=== PATIENT | male | born 1960 | race Caucasian/White ===

== ENCOUNTER 2017-01-25 10:58 | Inpatient (IN) ==
[2017-01-25 11:26] LABS: Bilirubin,Urine Negative (Negative); Blood,Urine Negative (Negative); Clarity,Urine Clear (Clear); Color,Urine Yellow (Yellow); Glucose,Urine (UA) Normal (Normal); Ketones,Urine Negative (Negative); Leukocyte Esterase,Urine Negative (Negative); Nitrite,Urine Negative (Negative); PH,Urine 6.5 pH Units (5.0-8.0); Protein,Urine Negative (Neg-Trace); Specific Gravity,Urine 1.017 (1.010-1.025); Urobilinogen,Urine Normal (Normal)
[2017-01-25 11:30] LABS: Basophils % 0.5 %; Eosinophils # 0.1 K/mcL (0.0-0.6); Eosinophils % 1.5 %; Hematocrit 44.4 % (37.5-50.1); Hemoglobin 14.7 g/dL (12.9-16.9); Immature Granulocytes % 0.2 % (0-4); Lymphocytes # 1.8 K/mcL (0.6-4.6); Lymphocytes % 29.9 %; Mean Corpuscular HGB Conc 33.1 g/dL (31.6-35.5); Mean Corpuscular Hemoglobin 30.2 pg (28.0-33.3); Mean Corpuscular Volume 91.4 fL (83.0-100.0); Monocytes # 0.4 K/mcL (0.0-1.3); Monocytes % 6.2 %; Neutrophils # 3.7 K/mcL (1.6-8.9); Platelet Count 202 K/mcL (140-400); Red Blood Count 4.86 M/mcL (4.19-5.50); Red Cell Distribution Width 14.8 % (11.5-14.5); Segmented Neutrophils % 61.7 %
[2017-01-25 11:33] LABS: Amphetamine Screen,Urine Negative ng/mL (Cutoff=1000); Barbiturate Screen,Urine Negative ng/mL (Cutoff=200); Benzodiazepines Screen,Urine Negative ng/mL (Cutoff=200); Cannabinoid Screen,Urine Positive ng/mL (Cutoff = 50); Cocaine Screen,Urine Negative ng/mL (Cutoff= 300); Opiate Screen,Urine Negative ng/mL (Cutoff=300); Phencyclidine Screen,Urine Negative ng/mL (Cutoff=25)
[2017-01-25 11:37] LABS: Acetaminophen < 1.0 mcg/mL (10-30); BUN/Creatinine Ratio 9 (6-26); Blood Urea Nitrogen 7 mg/dL (8-26); Calcium 9.1 mg/dL (8.6-10.8); Carbon Dioxide 22 mEq/L (19-29); Chloride 103 mEq/L (98-109); Ethanol < 10 mg/dL (0-10); Glucose 138 mg/dL (70-99); Osmolality,Calculated 282 (280-300); Potassium 3.6 mEq/L (3.5-4.5); Salicylate < 5.0 mg/dL (15-30); Sodium 136 mEq/L (136-145); eGFR For African Americans > 60 (> 60); eGFR For Non-African Americans > 60 (> 60)
--- NOTE | 2017-01-25 11:46 | Emergency Department Note ---
Disposition Clinical Impression: Schizophrenia, paranoid, chronic, Suicidal ideation Disposition: Admitted As Inpatient Condition: Fair Time of Disposition: 14:20 Psych HPI - General Chief Complaint: ED Psychiatric Symptoms Stated Complaint: SI Time Seen by Provider: 01/25/17 11:10 Source: patient Mode of arrival: ambulatory Limitations: no limitations Nursing Notes Reviewed: Yes Vital Signs Reviewed: Yes - History of Present Illness HPI Narrative: 56-year-old male with history of schizophrenia, bipolar, presents with suicidal ideation, denies clear plan, denies homicidal ideation or hallucinations. Patient states that he has no chest pain abdominal pain shortness of breath hemoptysis hematochezia or dysuria. He states that he has been noncompliant on psych medication for about a week he ran out of his Seroquel. He states he has a history of visits to inpatient psychiatry, he currently thinks the suicidal because he is not taking any of his antipsychotic medication. Pt complaint: suicidal ideation Onset (ago): hour(s) History of similar episodes: Yes Improves with: medication Worsens with: none Context: not taking psychiatric medications Alleged intoxication: No Associated Psychiatric Symptoms: suicidal ideation Associated symptoms: Denies: confusion, headache, shortness of breath - Related Data Home Medications Medication Instructions Recorded Confirmed Cyclobenzaprine [Flexeril] 10 mg PO BID PRN 01/25/17 01/25/17 Haloperidol [Haldol] 10 mg PO BID 01/25/17 01/25/17 Mirtazapine [Remeron] 15 mg PO HS 01/25/17 01/25/17 Quetiapine Fumarate [Seroquel] 200 mg PO HS 01/25/17 01/25/17 Previous Rx's Medication Instructions Recorded Benztropine [Cogentin] 1 mg PO BID 14 Days tablet 09/29/16 Allergies Allergy/AdvReac Type Severity Reaction Status Date / Time No Known Allergies Allergy Verified 01/25/17 10:59 All systems ED: reviewed and negative except as stated. Review of Systems: As Per HPI Constitutional: Denies: fever, chills Eyes: Denies: eye pain ENT ED: Denies: ear pain Cardiovascular: Denies: chest pain Respiratory: Denies: cough Gastrointestinal: Denies: abdominal pain, nausea Genitourinary: Denies: urgency Musculoskeletal: Denies: back pain, neck pain Integumentary: Denies: rash Neurological: Denies: headache Psychiatric: Reports: as per HPI, anxiety, depression, suicidal thoughts. Denies: homicidal thoughts, auditory hallucinations Past Medical History - Past Medical History Attestation: Yes The following information was validated with the patient. Source: patient Medical history: Reports: arthritis, COPD, hyperlipidemia Surgical history: Reports: other (Pilonidal cyst removal) Psychiatric history: Reports: bipolar, depression, schizophrenia - Social History Smoking Status: Current every day smoker Smokeless Tobacco Status: No Alcohol use: Reports: occasionally Drug use: Reports: none Physical Exam Constitutional: disheveled middle aged male, vital signs reviewed and wnl Eyes: PERRLA, sclera anicteric ENT & Mouth: MM dry Neck: normal inspection, neck is supple Resp: CTA bilaterally, no resp distress CV: RRR, no m/g/r GI: normal inspection, soft, no guarding or rigidity Psych: +SI no HI Neuro: A&O3, CNII-XII grossly intact, AARON Skin: on limited exam, skin intact with no rashes or lesions - General Limitations: no limitations General appearance: alert, in no apparent distress Course Course Narrative: 56-year-old male with suicidal ideation, basic lab work's medical screening exam performed, - Reevaluation(s) Reevaluation #1: Patient is medically cleared, one A did evaluate the patient, there did not appropriate for admission to inpatient psychiatry, patient will be Vital Signs Temperature 98.2 F 01/25/17 11:00 Pulse Rate 116 01/25/17 11:00 Respiratory Rate 18 01/25/17 11:00 Blood Pressure 133/72 01/25/17 11:00 O2 Sat by Pulse Oximetry 99 01/25/17 11:00 Temperature 98.2 F 01/25/17 11:00 Pulse Rate 81 01/25/17 12:27 Respiratory Rate 16 01/25/17 12:27 Blood Pressure 141/88 01/25/17 12:27 O2 Sat by Pulse Oximetry 100 01/25/17 12:27 Oxygen Delivery Oxygen Delivery Room Air Psych - Lab Data Result diagrams: 01/25/17 11:17 01/25/17 11:17 Lab Results 01/25/17 01/25/17 01/25/17 Range/Units 11:17 11:17 11:18 WBC 6.0 (4.3-11.1) K/mcL RBC 4.86 (4.19-5.50) M/mcL Hgb 14.7 (12.9-16.9) g/dL Hct 44.4 (37.5-50.1) % MCV 91.4 (83.0-100.0) fL MCH 30.2 (28.0-33.3) pg MCHC 33.1 (31.6-35.5) g/dL RDW 14.8 H (11.5-14.5) % Plt Count 202 (140-400) K/mcL MPV 9.0 L (9.4-12.4) fL Immature Gran % 0.2 (0-4) % Seg Neutrophils % 61.7 % Lymphocytes % 29.9 % Monocytes % 6.2 % Eosinophils % 1.5 % Basophils % 0.5 % Neutrophils # 3.7 (1.6-8.9) K/mcL Lymphocytes # 1.8 (0.6-4.6) K/mcL Monocytes # 0.4 (0.0-1.3) K/mcL Eosinophils # 0.1 (0.0-0.6) K/mcL Basophils # 0.0 (0.0-0.2) K/mcL Sodium 136 (136-145) mEq/L Potassium 3.6 (3.5-4.5) mEq/L Chloride 103 (98-109) mEq/L Carbon Dioxide 22 (19-29) mEq/L BUN 7 L (8-26) mg/dL Creatinine 0.82 (0.72-1.25) mg/dL Est GFR ( Amer) > 60 (> 60) Est GFR (Non-Af Amer) > 60 (> 60) BUN/Creatinine Ratio 9 (6-26) Glucose 138 H (70-99) mg/dL Calculated Osmolality 282 (280-300) Calcium 9.1 (8.6-10.8) mg/dL Urine Color Yellow (Yellow) Urine Clarity Clear (Clear) Urine pH 6.5 (5.0-8.0) pH Units Ur Specific [place] 1.017 (1.010-1.025) Urine Protein Negative (Neg-Trace) mg/dL Urine Glucose (UA) Normal (Normal) mg/dL Urine Ketones Negative (Negative) mg/dL Urine Blood Negative (Negative) Urine Nitrite Negative (Negative) Urine Bilirubin Negative (Negative) Urine Urobilinogen Normal (Normal) mg/dL Ur Leukocyte Esterase Negative (Negative) Salicylates < 5.0 L (15-30) mg/dL Urine Opiates Screen (Petfqd=625) ng/mL Acetaminophen < 1.0 L (10-30) mcg/mL Ur Barbiturates Screen (Vihefy=689) ng/mL Ur Phencyclidine Scrn (Cutoff=25) ng/mL Ur Amphetamines Screen (Lhzcgw=4365) ng/mL U Benzodiazepines Scrn (Hwmyrb=941) ng/mL Urine Cocaine Screen (Cutoff= 300) ng/mL U Marijuana (THC) Screen (Cutoff = 50) ng/mL Ethyl Alcohol < 10 (0-10) mg/dL // Range/Units 11:18 WBC (4.3-11.1) K/mcL RBC (4.19-5.50) M/mcL Hgb (12.9-16.9) g/dL Hct (37.5-50.1) % MCV (83.0-100.0) fL MCH (28.0-33.3) pg MCHC (31.6-35.5) g/dL RDW (11.5-14.5) % Plt Count (140-400) K/mcL MPV (9.4-12.4) fL Immature Gran % (0-4) % Seg Neutrophils % % Lymphocytes % % Monocytes % % Eosinophils % % Basophils % % Neutrophils # (1.6-8.9) K/mcL Lymphocytes # (0.6-4.6) K/mcL Monocytes # (0.0-1.3) K/mcL Eosinophils # (0.0-0.6) K/mcL Basophils # (0.0-0.2) K/mcL Sodium (136-145) mEq/L Potassium (3.5-4.5) mEq/L Chloride (98-109) mEq/L Carbon Dioxide (19-29) mEq/L BUN (8-26) mg/dL Creatinine (0.72-1.25) mg/dL Est GFR ( Amer) (> 60) Est GFR (Non-Af Amer) (> 60) BUN/Creatinine Ratio (6-26) Glucose (70-99) mg/dL Calculated Osmolality (280-300) Calcium (8.6-10.8) mg/dL Urine Color (Yellow) Urine Clarity (Clear) Urine pH (5.0-8.0) pH Units Ur Specific [place] (1.010-1.025) Urine Protein (Neg-Trace) mg/dL Urine Glucose (UA) (Normal) mg/dL Urine Ketones (Negative) mg/dL Urine Blood (Negative) Urine Nitrite (Negative) Urine Bilirubin (Negative) Urine Urobilinogen (Normal) mg/dL Ur Leukocyte Esterase (Negative) Salicylates (15-30) mg/dL Urine Opiates Screen Negative (Kkgwdd=894) ng/mL Acetaminophen (10-30) mcg/mL Ur Barbiturates Screen Negative (Zhhyus=850) ng/mL Ur Phencyclidine Scrn Negative (Cutoff=25) ng/mL Ur Amphetamines Screen Negative (Fpsfic=3790) ng/mL U Benzodiazepines Scrn Negative (Qsoztv=509) ng/mL Urine Cocaine Screen Negative (Cutoff= 300) ng/mL U Marijuana (THC) Screen Positive H (Cutoff = 50) ng/mL Ethyl Alcohol (0-10) mg/dL Psychiatric Medical Clearance - Medical Clearance Checklist Does the patient have a NEW psychiatric condition?: No Any abnormalities indicating possible medical illness?: No Any history of medical issues?: No Medical History: Schizophrenia, paranoid, chronic (Acute) Suicidal ideation (Acute) Depression (Acute) Anxiety disorder (Acute) Bipolar disorder (Inactive) Blister of foot without infection (Inactive) Cellulitis (Inactive) Depression (Inactive) Dermatitis (Inactive) Encounter for medication refill (Inactive) Foot callus (Inactive) Pain of male genitalia (Inactive) Poor hygiene (Inactive) Schizophrenic disorder (Inactive) No Social History Section defined Any abnormal vital signs prior to transfer?: No Current Vitals: Last Vital Signs Temp 98.2 F 01/25/17 11:00 Pulse 81 01/25/17 12:27 Resp 16 01/25/17 12:27 BP 141/88 01/25/17 12:27 Pulse Ox 100 01/25/17 12:27 Is the patient intoxicated or cognitively impaired?: No Psychiatric Lab Panel: Drug Levels and Toxicity 01/25/17 01/25/17 11:17 11:18 Urine Opiates Screen Negative Acetaminophen < 1.0 L Ur Barbiturates Screen Negative Ur Phencyclidine Scrn Negative Ur Amphetamines Screen Negative U Benzodiazepines Scrn Negative Urine Cocaine Screen Negative U Marijuana (THC) Screen Positive H Ethyl Alcohol < 10 Any abnormalities on the physical exam?: No Any abnormal labs?: No Abnormal Labs: Abnormal lab results RDW 14.8 % (11.5-14.5) H 01/25/17 11:17 MPV 9.0 fL (9.4-12.4) L 01/25/17 11:17 BUN 7 mg/dL (8-26) L 01/25/17 11:17 Glucose 138 mg/dL (70-99) H 01/25/17 11:17 Salicylates < 5.0 mg/dL (15-30) L 01/25/17 11:17 Acetaminophen < 1.0 mcg/mL (10-30) L 01/25/17 11:17 U Marijuana (THC) Screen Positive ng/mL (Cutoff = 50) H 01/25/17 11:18 Does the patient require durable medical equiptment?: No Is the patient ambulatory?: Yes Is the patient a fall risk?: No Has the patient been medically cleared?: Yes Any acute medical condition require Tx prior to transfer?: No Statement of Medical Clearance: I have evaluated the patient, reviewed diagnostic information, and certify that the patient's medical condition is sufficiently stable that transfer to the psychiatric unit does not pose a significant risk of deterioration.
--- NOTE | 2017-01-25 12:00 | Emergency Department Note ---
START Narrative - START START: I examined this patient and my medical decision-making was reviewed with the Resident Physician. I agree with the documented findings, disposition and treatment plan as described except to the extent set forth below. 56 year old male with history of schizophrenia presents to the ED with SI and states that he has ran out of his medication which are making his symptoms worse. Lele states that he lives in an apartment but I have high suspicions that he may be homeless. Lele will recieve a medical clearance from us and then we will consult 1A
[2017-01-25] MEDS ORDERED: MOM Conc 10 ML UD.LIQ PO PRN (15:10)
[2017-01-25] MEDS ORDERED: Acetaminophen 325 MG TABLET PO PRN (15:10)
[2017-01-25] MEDS ORDERED: hydrOXYzine pamoate 25 MG CAPSULE PO PRN (15:10)
[2017-01-25] MEDS ORDERED: Mag Hydrox/Al Hydrox/Simeth 30 ML UDC PO PRN (15:10)
[2017-01-25] MEDS ORDERED: Haloperidol Lactate 5 MG/ML VIAL IM PRN (15:10)
[2017-01-25] MEDS ORDERED: *HR* LORazepam 2 MG/ML VIAL IM PRN (15:10)
[2017-01-25] MEDS ORDERED: *HR* LORazepam 1 MG TABLET PO PRN (15:10)
[2017-01-25] MEDS: traZODone 50 MG TABLET PO PRN (20:23)
[2017-01-25] MEDS: Mirtazapine 15 MG TABLET PO SCH (20:23)
--- NOTE | 2017-01-26 10:10 | Psychiatry History & Physical ---
Date of Encounter: 01/26/17 Time of Encounter: 10:03 History of Present Illness Patient Stated Chief Complaint: I wanted to get back on medicaiton, I was going to kill myself Medicare Admission Attestation: For traditional Medicare patients the provided hospital inpatient services are reasonable and necessary and in the case of services not specified as inpatient -only under 42 CFR 419.22 (n), that they are appropriately provided as inpatient services in accordance 42 CFR 412.3. For Critical Access Hospital the patient may reasonably be expected to be discharged or transferred to a hospital within 96 hours after admission to the Critical Access Hospital. Admitted From: Emergency Dept Plans for Post Hospital Care: Home History of Present Illness: Mr. Krishna is a 56 year old male He is unmarried and he was brought by his landlord to the emergency room. He was admitted from the ER voluntarily. Chief complaint: I want to get back on medication. I could not find my medication. I am followed by integrated services and was last seen January 09. History of present illness:. The patient was off his medicines for a couple of weeks. He had been prescribed several medicines that he can recall he gets them in bottles from [facility] pharmacy. Nonetheless he could not find the bottles. The patient wanted to complete suicide because he started feeling bad. It is not clear that he had any medicines after he left his appointment. He reported becoming more depressed he reported being more paranoid. He reports that he does not hear voices except upon occasion. He reports that he has not an integrated services caseworker protective services but he cannot recall her name. The patient is followed by the psychiatrist Dr. Dejesus. He takes Seroquel 200 mg daily at bedtime, Haldol 10 mg twice a day, Remeron 15 mg daily at bedtime Flexeril 10 twice a day ibuprofen when necessary. The patient has used alcohol but says that he stopped drinking one week ago. He denies a history of alcohol abuse. The patient smokes every day 1 pack per day of cigars he has no plans to quit he uses marijuana occasionally he denies other drugs of abuse. Past psychiatric history [facility] 1 week [facility] 1 week other hospitalizations include edema in 2016. 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 Illnesses: Arthritis, COPD with no current inhaler NKDA Diet is regular but he often goes to the dumpster to eat food. Family history: His brother and sister from myotonic dystrophy. His father had myotonic dystrophy and also had schizophrenia. There is no family history of suicide drug abuse or alcohol abuse Social history. The patient attained a GED. He participated in the [employer] he worked in [employer] at age 22 he received SSDI for schizophrenia. He has never he has no children. He used to be a Islam but quit. He has no phone in his house he does not drive area he lives by himself he has no guns or other weapons. Review of systems. The patient has Medicare and Medicaid he has [facility] pharmacy but has not been on a dose pack. He wears glasses. He is edentulous and waiting on his teeth. He says he sleeps okay his mood is dysphoric and he reports feeling low and as if he is going to lose control. Past Med Surg Social Fam HX - Past Medical History Medical history: arthritis, COPD, hyperlipidemia - Past Psychiatric History Psychiatric history: Reports: previous psychiatric hospitalization Family psychiatric history: Yes Family History of Suicide: None - Past Surgical History Surgical History: non-contributory, other - Social History Smoking Status: Current every day smoker Smokeless Tobacco Status: No Alcohol use: occasionally Drug use: none - Family History Father Sister Hx Family Neuromuscular Disorders: Yes (myotonic dystropphy) - Additional Family History Additional family history: father schizophrenia Medications & Allergies Benztropine [Cogentin] 1 mg PO BID 14 Days tablet 09/29/16 [Rx] Cyclobenzaprine [Flexeril] 10 mg PO BID PRN 01/25/17 [History] Haloperidol [Haldol] 10 mg PO BID 01/25/17 [History] Mirtazapine [Remeron] 15 mg PO HS 01/25/17 [History] Quetiapine Fumarate [Seroquel] 200 mg PO HS 01/25/17 [History] 3 Allergy/AdvReac Type Severity Reaction Status Date / Time No Known Allergies Allergy Verified 01/25/17 10:59 Review of Systems Respiratory: Reports: dyspnea (ooccasional) Musculoskeletal: Reports: joint pain Psychiatric: Reports: suicidal ideation, hopelessness, irritability Mental Status Exam Patient orientation: Yes Person, Yes Time, Yes Place, Yes Circumstance Level of alertness: Alert Patient appearance: Unkempt, Thin Behavior: cooperative Psychomotor activity: Slowed Eye contact: Minimal Contact Mood description: Irritable Affect description: dysphoric Speech pattern: Slowed Speech volume: Normal Thought process: Slowed Thinking Thought content: Yes Suicidal ideation, Yes Preoccupation Attention span: Capable of Sustained Attention Memory description: Immediate Intact, Remote Impaired Patient reliability: Questionable Historian Intelligence estimate: Average Judgment: Fair Insight: Partial Exam - HEENT Head exam IM: Present: normal inspection Eye exam IM: Present: EOMI ENT exam IM: Present: mucous membranes dry - Neurological Neurological exam IM: Present: alert, CN II-XII intact, oriented X3 - Respiratory Respiratory exam IM: Present: decreased breath sounds - GI/Abdominal GI/Abdominal exam IM: Present: normal bowel sounds - Extremities Extremities exam IM: Present: full ROM - Skin Skin exam IM: Present: dry Results - Vital Signs Vital signs: Temp Pulse Resp BP Pulse Ox 98.2 F 96 18 107/74 100 01/26/17 09:00 01/26/17 09:00 01/26/17 09:00 01/26/17 09:00 01/25/17 12:27 - Drug Levels and Toxicology Drug Levels and Toxicology: THC + - Labs Labs: Laboratory Last Values WBC 6.0 K/mcL (4.3-11.1) 01/25/17 11:17 RBC 4.86 M/mcL (4.19-5.50) 01/25/17 11:17 Hgb 14.7 g/dL (12.9-16.9) 01/25/17 11:17 Hct 44.4 % (37.5-50.1) 01/25/17 11:17 MCV 91.4 fL (83.0-100.0) 01/25/17 11:17 MCH 30.2 pg (28.0-33.3) 01/25/17 11:17 MCHC 33.1 g/dL (31.6-35.5) 01/25/17 11:17 RDW 14.8 % (11.5-14.5) H 01/25/17 11:17 Plt Count 202 K/mcL (140-400) 01/25/17 11:17 MPV 9.0 fL (9.4-12.4) L 01/25/17 11:17 Immature Gran % 0.2 % (0-4) 01/25/17 11:17 Seg Neutrophils % 61.7 % 01/25/17 11:17 Lymphocytes % 29.9 % 01/25/17 11:17 Monocytes % 6.2 % 01/25/17 11:17 Eosinophils % 1.5 % 01/25/17 11:17 Basophils % 0.5 % 01/25/17 11:17 Neutrophils # 3.7 K/mcL (1.6-8.9) 01/25/17 11:17 Lymphocytes # 1.8 K/mcL (0.6-4.6) 01/25/17 11:17 Monocytes # 0.4 K/mcL (0.0-1.3) 01/25/17 11:17 Eosinophils # 0.1 K/mcL (0.0-0.6) 01/25/17 11:17 Basophils # 0.0 K/mcL (0.0-0.2) 01/25/17 11:17 Sodium 136 mEq/L (136-145) 01/25/17 11:17 Potassium 3.6 mEq/L (3.5-4.5) 01/25/17 11:17 Chloride 103 mEq/L (98-109) 01/25/17 11:17 Carbon Dioxide 22 mEq/L (19-29) 01/25/17 11:17 BUN 7 mg/dL (8-26) L 01/25/17 11:17 Creatinine 0.82 mg/dL (0.72-1.25) 01/25/17 11:17 Est GFR ( Amer) > 60 (> 60) 01/25/17 11:17 Est GFR (Non-Af Amer) > 60 (> 60) 01/25/17 11:17 BUN/Creatinine Ratio 9 (6-26) 01/25/17 11:17 Glucose 138 mg/dL (70-99) H 01/25/17 11:17 Calculated Osmolality 282 (280-300) 01/25/17 11:17 Calcium 9.1 mg/dL (8.6-10.8) 01/25/17 11:17 Urine Color Yellow (Yellow) 01/25/17 11:18 Urine Clarity Clear (Clear) 01/25/17 11:18 Urine pH 6.5 pH Units (5.0-8.0) 01/25/17 11:18 Ur Specific [place] 1.017 (1.010-1.025) 01/25/17 11:18 Urine Protein Negative mg/dL (Neg-Trace) 01/25/17 11:18 Urine Glucose (UA) Normal mg/dL (Normal) 01/25/17 11:18 Urine Ketones Negative mg/dL (Negative) 01/25/17 11:18 Urine Blood Negative (Negative) 01/25/17 11:18 Urine Nitrite Negative (Negative) 01/25/17 11:18 Urine Bilirubin Negative (Negative) 01/25/17 11:18 Urine Urobilinogen Normal mg/dL (Normal) 01/25/17 11:18 Ur Leukocyte Esterase Negative (Negative) 01/25/17 11:18 Salicylates < 5.0 mg/dL (15-30) L 01/25/17 11:17 Urine Opiates Screen Negative ng/mL (Gmbqwn=624) 01/25/17 11:18 Acetaminophen < 1.0 mcg/mL (10-30) L 01/25/17 11:17 Ur Barbiturates Screen Negative ng/mL (Jkricg=533) 01/25/17 11:18 Ur Phencyclidine Scrn Negative ng/mL (Cutoff=25) 01/25/17 11:18 Ur Amphetamines Screen Negative ng/mL (Kxjjhd=1080) 01/25/17 11:18 U Benzodiazepines Scrn Negative ng/mL (Imisym=758) 01/25/17 11:18 Urine Cocaine Screen Negative ng/mL (Cutoff= 300) 01/25/17 11:18 U Marijuana (THC) Screen Positive ng/mL (Cutoff = 50) H 01/25/17 11:18 Ethyl Alcohol < 10 mg/dL (0-10) 01/25/17 11:17 Assessment and Plan (1) Schizophrenia, paranoid, chronic Current visit: Yes Status: Acute Plan: Admit inpatient for safety and stabilization, Suicide Precautions per unit protocol, Encourage participation in unit milieu, Monitor appetite Risks , benefits, side effects, alternatives discussed w/pt: Yes Patient agreeable to treatment: Yes Plans for Post Hospital Care: Home Estimated Length of Stay (Days): 7 (2) Suicidal ideation Current visit: Yes Status: Acute Plan: Admit inpatient for safety and stabilization, Group Therapy, Monitor sleep , Secure weapons Risks, benefits, side effects, alternatives discussed w/pt: Yes Patient agreeable to treatment: Yes Plans for Post Hospital Care: Home Estimated Length of Stay (Days): 7
[2017-01-26] MEDS: Mirtazapine 15 MG TABLET PO SCH (21:24)
--- NOTE | 2017-01-27 14:15 | Psychiatry Progress Note ---
Date of Encounter: 01/27/17 Time of Encounter: 14:13 Subjective Interval history: The patient reports that he is not bothered by paranoia. He says he is feeling a lot better. He notes that he likes to get his medicines in the pill bottles and he might get a medication organizer. The patient is willing to have home health services he is attending groups. He would like to talk to his case folder Jed [facility]q of [facility] Review of Systems Psychiatric: Reports: difficulty concentrating, irritability Objective: Exam Patient orientation: Yes Person, Yes Time, Yes Place, Yes Circumstance Level of alertness: Alert Patient appearance: Appropriate Behavior: calm, restless Psychomotor activity: Normal Eye contact: Maintains Eye Contact Mood description: Anxious Affect description: constricted Speech pattern: Normal rhythm, Normal tone Speech volume: Normal Thought process: Logical, Evasive Thought content: Yes Poverty of Content Judgment: Limited Insight: Minimal Results - Vital Signs Vital Signs: Temp Pulse Resp BP Pulse Ox 97.8 F 81 16 116/79 100 01/27/17 09:00 01/27/17 09:00 01/27/17 09:00 01/27/17 09:00 01/25/17 12:27 Assessment and Plan (1) Schizophrenia, paranoid, chronic Current visit: Yes Status: Acute Plan: Continue hospitalization, Suicide Precautions per unit protocol, Encourage participation in unit milieu Additional Plan: he still wants to smoke marijauan occassionally he wants his pills in prescription bottles. Risks, benefits, side effects, alternatives discussed w/pt: Yes Patient agreeable to treatment: Yes (2) Suicidal ideation Current visit: Yes Status: Acute Plan: Continue hospitalization Additional Plan: cordinate with home health and integrated services Risks, benefits, side effects, alternatives discussed w/pt: Yes Patient agreeable to treatment: Yes Consult Discharge Plan - Plan Referrals: [facility] [Outside] (You will see Dr. Dejesus for outpatient psychiatric assessment and medication management services on 02/16/2017 at 9:00 AM.)
[2017-01-27] MEDS: Mirtazapine 15 MG TABLET PO SCH (21:35)
--- NOTE | 2017-01-28 11:31 | Psychiatry Progress Note ---
Date of Encounter: 01/28/17 Time of Encounter: 11:27 Subjective Interval history: Client reports he is feeling better. Suicidal thoughts have gone. No thoughts of hurting anyone else. Psychosis has improved. Will likely go home Monday with home health. Waiting for call back from home health to verify that services can start right away. When client was admitted he was off meds, without his food stamps, without his phone, and had no means to care for himself. Didn't know who his correctional case records supervisor was or how to contact supports for help. Needs services. Client is now med compliant and agreeable to services so will discharge home once supports are in place. Anticipated discharge on Monday. Review of Systems Constitutional: Denies: fever, chills, weakness, weight change Eyes: Denies: eye pain, vision change Ears, Nose, Throat: Denies: ear pain, throat pain, dental pain, hearing loss, congestion Cardiovascular: Denies: chest pain, palpitations, dyspnea on exertion Respiratory: Denies: cough, dyspnea, wheezes Gastrointestinal: Denies: abdominal pain, nausea, vomiting, diarrhea, constipation Musculoskeletal: Denies: joint swelling, joint pain Neurological: Denies: headache, weakness, numbness, memory loss Psychiatric: Reports: difficulty concentrating, irritability Objective: Exam Patient orientation: Yes Person, Yes Time, Yes Place Level of alertness: Alert Patient appearance: Appropriate Behavior: calm, cooperative Psychomotor activity: Normal Eye contact: Minimal Contact Mood description: Anxious Affect description: congruent with mood Speech pattern: Normal rate, Normal rhythm, Normal tone Speech volume: Normal Thought process: Goal Oriented Thought content: No Suicidal ideation, No Homicidal ideation, Yes Paranoid delusion Perceptual disturbances: No Auditory hallucinations, No Visual hallucinations Judgment: Limited Insight: Partial Results - Vital Signs Vital Signs: Temp Pulse Resp BP Pulse Ox 98.1 F 105 18 103/69 100 01/28/17 09:00 01/28/17 09:00 01/28/17 09:00 01/28/17 09:00 01/25/17 12:27 Assessment and Plan (1) Schizophrenia, paranoid, chronic Current visit: Yes Status: Acute Plan: Continue hospitalization, Close observation, Suicide Precautions per unit protocol, Encourage participation in unit milieu, Group Therapy, Monitor sleep, Monitor appetite Risks, benefits, side effects, alternatives discussed w/pt: Yes Patient agreeable to treatment: Yes Consult Discharge Plan - Plan Referrals: [facility] [Outside] - 01/31/17 9:00 am (You will see your correctional case records supervisor, Thelma Potter, on 01/31/2017 at 9:00am in the office - this is the same office as Dr. Dejesus. Thelma's phone number is [phone]. You will see Dr. Dejesus for outpatient psychiatric assessment and medication management services on 02/16/2017 at 9:00 AM.)
[2017-01-28] MEDS: traZODone 50 MG TABLET PO PRN (20:07)
[2017-01-28] MEDS: Mirtazapine 15 MG TABLET PO SCH (20:07)
--- NOTE | 2017-01-29 12:01 | Psychiatry Progress Note ---
Date of Encounter: 01/29/17 Time of Encounter: 11:58 Subjective Interval history: Still looking good. Plan is to discharge him tomorrow with home health services. Staff are still waiting for a call back but anticipate home health services can start right away. Demonstrated his inability to meet basic needs without support but client is open to home health services now and feels ready to go. Mood is stable. Psychosis has improved. No behavioral issues on the unit. Denies SI/HI. Review of Systems Constitutional: Denies: fever, chills, weakness, weight change Eyes: Denies: eye pain, vision change Ears, Nose, Throat: Denies: ear pain, throat pain, dental pain, hearing loss, congestion Cardiovascular: Denies: chest pain, palpitations, dyspnea on exertion Respiratory: Denies: cough, dyspnea, wheezes Gastrointestinal: Denies: abdominal pain, nausea, vomiting, diarrhea, constipation Musculoskeletal: Denies: joint swelling, joint pain Neurological: Denies: headache, weakness, numbness, memory loss Psychiatric: Reports: difficulty concentrating, irritability Objective: Exam Patient orientation: Yes Person, Yes Time, Yes Place Level of alertness: Alert Patient appearance: Disheveled Behavior: calm, cooperative Psychomotor activity: Normal Eye contact: Maintains Eye Contact Mood description: Euthymic/stable Affect description: blunted Speech pattern: Normal rate, Normal rhythm, Normal tone Speech volume: Normal Thought process: Linear Thought content: No Suicidal ideation, No Homicidal ideation, No Overt delusions Perceptual disturbances: No Auditory hallucinations, No Visual hallucinations Judgment: Fair Insight: Partial Results - Vital Signs Vital Signs: Temp Pulse Resp BP Pulse Ox 97.8 F 98 16 108/73 100 01/29/17 09:00 01/29/17 09:00 01/29/17 09:00 01/29/17 09:00 01/25/17 12:27 Assessment and Plan (1) Schizophrenia, paranoid, chronic Current visit: Yes Status: Acute Plan: Continue hospitalization, Close observation, Suicide Precautions per unit protocol, Encourage participation in unit milieu, Group Therapy, Monitor sleep, Monitor appetite Risks, benefits, side effects, alternatives discussed w/pt: Yes Patient agreeable to treatment: Yes Consult Discharge Plan - Plan Referrals: [facility] [Outside] - 01/31/17 9:00 am (You will see your child support case officer, Thelma Potter, on 01/31/2017 at 9:00am in the office - this is the same office as Dr. Dejesus. Thelma's phone number is [phone]. You will see Dr. Dejesus for outpatient psychiatric assessment and medication management services on 02/16/2017 at 9:00 AM.)
[2017-01-29] MEDS: Mirtazapine 15 MG TABLET PO SCH (21:40)
[2017-01-30 08:57] VITALS: BP 113/84
--- NOTE | 2017-01-30 12:30 | Physician Discharge Referral ---
Home Health/Hosp Referral Info Transfer to: Home Health Attending Provider: Estrellita Sanford Provider in Charge Post Discharge: PCP Titi) - Diagnosis (1) Schizophrenia, paranoid, chronic Status: Acute (2) Anxiety disorder Status: Acute - Respiratory Orders None Smoking Cessation: Smoking cessation has been advised. For more information, call the [place] Tobacco Quit Line at 4-210-PLHF-NOW. - Dressing/Wound Care Site: none. - Diet/Nutrition Diet/Nutrition Orders: Regular - Activity Activity Orders: Up ad oneyda, Ambulate - Services Needed Following services are medically necessary services: Nursing (Medication and reconcillation daily.) - Transfer Medications Home Medications: Benztropine [Cogentin] 1 mg PO BID 14 Days tablet 09/29/16 [Rx] Cyclobenzaprine [Flexeril] 10 mg PO BID PRN 01/25/17 [History] Haloperidol [Haldol] 10 mg PO BID 01/25/17 [History] Mirtazapine [Remeron] 15 mg PO HS 01/25/17 [History] Quetiapine Fumarate [Seroquel] 200 mg PO HS 01/25/17 [History] Allergies/Adverse Reactions: 3 Allergy/AdvReac Type Severity Reaction Status Date / Time No Known Allergies Allergy Verified 01/25/17 10:59 Certification: Further, I certify that my clinical findings support that this patient is homebound (i.e. absences from home require considerable and taxing effort and are for medical reasons or denominational services or infrequently or short duration when for other reasons) because: Homebound Reason: Altered mental status requiring supervision when leaving home Attestation: My signature below is to certify that this patient is under my care and that I, or nurse practitioner, or a physician's medical staff assistant working with me, has a face-to -face encounter with this patient.
--- NOTE | 2017-01-30 13:17 | Discharge Summary ---
Date of Encounter: 01/30/17 Time of Encounter: 11:35 Diagnosis - Discharge Diagnosis (1) Schizophrenia, paranoid, chronic Priority: Primary Status: Acute (2) Anxiety disorder Priority: Secondary Status: Acute Qualifiers: Anxiety disorder type: generalized anxiety disorder Qualified Code(s): F41.1 - Generalized anxiety disorder Medications - Discharge Medications Prescriptions: Benztropine [Cogentin] 1 mg PO BID 14 Days #60 tablet Haloperidol [Haldol] 10 mg PO BID #60 tablet Mirtazapine [Remeron] 15 mg PO HS #30 tablet Quetiapine Fumarate [Seroquel] 200 mg PO HS #30 tablet Cyclobenzaprine [Flexeril] 10 mg PO BID PRN 01/25/17 [History] Mirtazapine [Remeron] 15 mg PO HS 01/25/17 [History] Benztropine [Cogentin] 1 mg PO BID 14 Days #60 tablet 01/30/17 [Rx] Haloperidol [Haldol] 10 mg PO BID #60 tablet 01/30/17 [Rx] Mirtazapine [Remeron] 15 mg PO HS #30 tablet 01/30/17 [Rx] Quetiapine Fumarate [Seroquel] 200 mg PO HS #30 tablet 01/30/17 [Rx] 3 Allergy/AdvReac Type Severity Reaction Status Date / Time No Known Allergies Allergy Verified 01/25/17 10:59 Provider Date of admission: 01/25/17 13:53 Primary care physician: PCP NONE Discharging clinician: Estrellita Sanford Assessment and Plan - Patient/Caregiver Discharge Instructions Activity: resume usual activities as tolerated Diet: regular diet Additional Instructions: [facility] will come to your home, 01/31/2017, to begin home health nursing services. You may reach their office at [phone]. - Follow up Plan Follow up with: [facility] [Outside] - 01/31/17 9:00 am (You will see your mental health case manager, Thelma Potter, on 01/31/2017 at 9:00am in the office - this is the same office as Dr. Dejesus. Thelma's phone number is [phone]. You will see Dr. Dejesus for outpatient psychiatric assessment and medication management services on 02/16/2017 at 9:00 AM.) Functional capacity at discharge: independent ambulation Disposition: Home Health Service Hospital Course Hospital course: Mr. Krishna is a 56 year old male with a history of schizophrenia and anxiety who presented to the hospital after stopping his medications. Patient became depressed and paranoid and presented to the hospital voluntarily brought by his landlord. He was admitted to for psychiatric stabilization. He was incorporated into the therapeutic milieu and offer group and individual as well as recreational therapy. He was restarted on his home medications including Seroquel, Haldol, Remeron, Cogentin. He tolerated these medications well. Patient has trouble remembering to take his medications and apparently lost his previous meds. He states that once he gets on his medications he does better. He would like to try home health to help him organize medications and take as prescribed. Patient's mood symptoms as well as his paranoia improved throughout the course of the hospital stay. At the time of discharge he reported his mood was improved and he denied suicidal ideation. He will continue taking his meds as prescribed and follow-up with his outpatient provider. He is discharged in stable condition. - Time Spent with Patient Total time spent providing and/or coordinating discharge services: Greater than 30 minutes Quality - Multiple Antipsychotics Patient discharged on 2 or more antipsychotic medications: Yes - Justification Documentation of: Other justification (Patient stable halfway on this medicaiton.) Procedures - Procedures Procedures: Medication Management, Crisis Stabilization, Supportive Therapy, Group Therapy, Psychoeducational Therapy Mental Status Exam - Mental Status Exam Patient orientation: Yes Person Level of alertness: Alert Patient appearance: Appropriate, Well Groomed Behavior: calm, cooperative Psychomotor activity: Normal Eye contact: Maintains Eye Contact Mood description: Euthymic/stable Affect description: constricted Speech pattern: Normal rate, Normal rhythm, Normal tone Speech Volume: Normal Thought process: Intact, Logical, Goal Oriented Thought Content: No Suicidal ideation, No Homicidal ideation, No Overt delusions Perceptual Disturbances: No Auditory hallucinations, No Visual hallucinations Judgment: Fair Insight: Partial
== END 2017-01-30 15:20 | disposition home health service (06) | DRG 885 ==
LOC: EMEROO 10:58 → 1ANU 13:53
PROVIDERS: ADMIT Psychiatry & Neurology Forensic Psychiatry; ATTEND Psychiatry & Neurology Forensic Psychiatry

== ENCOUNTER 2017-06-24 12:07 | Inpatient (IN) ==
[2017-06-24] MEDS ORDERED: GI Cocktail 40 ML EACH PO ONE (12:14)
--- NOTE | 2017-06-24 12:15 | Emergency Department Note ---
Disposition Clinical Impression: SHAMIR (acute kidney injury) GI bleed Qualifiers: GI bleed type/associated pathology: melena Qualified Code(s): K92.1 - Melena Hypotension Qualifiers: Hypotension type: unspecified hypotension type Qualified Code(s): I95.9 - Hypotension, unspecified Disposition: Admitted As Inpatient Condition: Good Referrals: Hi Curry MD [Primary Care Provider] - Forms: ED Satisfaction Letter Time of Disposition: 14:58 GI Bleed HPI - General Chief complaint: ED GI Bleed Stated complaint: black stool x3 days Time Seen by Provider: 06/24/17 12:12 Source: patient, EMS Mode of arrival: EMS Limitations: no limitations Nursing Notes Reviewed: Yes Vital Signs Reviewed: Yes - History of Present Illness HPI Narrative: Patient is a 56-year-old male with past medical history of gastric ulcers, occasional alcohol use. He presents today due to nausea and vomiting, nonbloody and nonbilious. Also black diarrhea. He states that these symptoms have been present for the past 3 days. He also feels lightheaded when he stands up. Denies any other chest pain, shortness of breath, fevers. Denies any bright red blood in stool. He also admits to associated epigastric and right upper quadrant pain. - Related Data Home Medications Medication Instructions Recorded Confirmed Cyclobenzaprine [Flexeril] 10 mg PO BID PRN 01/25/17 06/24/17 Previous Rx's Medication Instructions Recorded Benztropine [Cogentin] 1 mg PO BID 14 Days #60 tablet 01/30/17 Haloperidol [Haldol] 10 mg PO BID #60 tablet 01/30/17 Mirtazapine [Remeron] 15 mg PO HS #30 tablet 01/30/17 Quetiapine Fumarate [Seroquel] 200 mg PO HS #30 tablet 01/30/17 Naproxen 500 mg PO BID 3 Days #6 tablet 05/05/17 Allergies Allergy/AdvReac Type Severity Reaction Status Date / Time No Known Allergies Allergy Verified 01/25/17 10:59 All systems ED: reviewed and negative except as stated. Constitutional: Denies: fever Cardiovascular: Denies: chest pain Respiratory: Denies: cough, dyspnea Gastrointestinal: Reports: abdominal pain, nausea, vomiting, diarrhea, melena Genitourinary: Denies: urgency, dysuria Integumentary: Denies: rash Neurological: Denies: headache, weakness, numbness, paresthesias Past Medical History - Past Medical History Attestation: Yes The following information was validated with the patient. Source: patient Medical history: Reports: arthritis, COPD, hyperlipidemia Surgical history: Reports: non-contributory, other Psychiatric history: Reports: bipolar, depression, schizophrenia - Social History Smoking Status: Current every day smoker Smokeless Tobacco Status: No Alcohol use: Reports: occasionally Drug use: Reports: marijuana Physical Exam - General Limitations: no limitations General appearance: alert, cachectic (and jaundice) - Head Head exam: atraumatic, normocephalic, normal inspection - Eye Eye exam: Present: normal appearance, PERRL, EOMI - ENT ENT exam: normal exam, normal oropharynx, mucous membranes moist - Neck Neck exam: Present: normal inspection, full ROM, trachea midline - Chest Chest inspection: Present: normal inspection, symmetric chest wall rise - Respiratory Respiratory exam: Present: normal lung sounds bilaterally - Cardiovascular Cardiovascular exam: Present: normal rhythm, tachycardia, normal heart sounds - Abdominal Exam Abdominal exam: Present: soft, tenderness (RUQ and epigastric region, moderate) . Absent: distention, guarding, rebound, rigidity - Extremities Exam Extremities exam: Present: normal inspection, full ROM. Absent: tenderness, pedal edema - Neurological Exam Neurological exam: Present: alert, oriented X3 - Psychiatric Psychiatric exam: Present: normal affect, normal mood - Skin Skin exam: Present: warm, dry, intact, other (jaundice) Course Course Narrative: Patient is tachycardic, systolic blood pressure in 90s. Otherwise, the rest of the vitals were within normal limits. Physical exam shows right upper quadrant and epigastric pain. Patient also appears pale/jaundice. Concern for GI bleed at this time. Type and screen and 2 units of packed red blood cells have been ordered. We will give the patient 2 liter normal saline bolus. We will obtain CBC, BMP, LFTs, lipase. Patient will need admitted for further care. [address] 14:55 CT abdomen and pelvis shows gastric wall thickening which could relate to gastritis. There is also a 1 cm lesion of the right kidney. These were discussed with the hospitalist. Chest x-ray was negative for any acute pulmonary process. Hemoglobin was 8.3, however, patient was hypertensive and Hemoccult stool positive - 2 packed red blood cells started at this time. After fluids and blood, systolic blood pressure now in the 130s. Heart rate down to low 100s/high 90s. Labs also show acute kidney injury, this was treated with fluids. Patient was accepted for admission by Dr. Hubbard for further care. Abdomen/Pelvis CT 06/24/17 12:14 IMPRESSION: 1. Nonspecific moderate gastric wall thickening which could relate to gastritis. Suggest correlation with endoscopy to exclude malignancy. 2. A 1 cm hyperdense lesion in the lateral right kidney could represent a complicated cyst or solid mass. Recommend nonemergent renal CT or MRI for further evaluation. D/ / Junior Travis MD / Junior Travis MD Interpreting Provider: Junior Travis MD Chest X-Ray 06/24/17 12:14 IMPRESSION: No acute process. D/ / Andreas Plata MD / Andreas Plata MD Interpreting Provider: Andreas Plata MD Vital Signs Temperature 99.1 F 06/24/17 12:10 Pulse Rate 118 06/24/17 12:10 Respiratory Rate 18 06/24/17 12:10 Blood Pressure 98/67 06/24/17 12:10 O2 Sat by Pulse Oximetry 100 06/24/17 12:10 Temperature 99.2 F 06/24/17 14:11 Pulse Rate 101 06/24/17 14:51 Respiratory Rate 18 06/24/17 14:51 Blood Pressure 124/74 06/24/17 14:51 O2 Sat by Pulse Oximetry 98 06/24/17 14:51 Oxygen Delivery Oxygen Delivery Room Air GI Bleed - MDM Narrative Medical decision making narrative: Patient is tachycardic, systolic blood pressure in 90s. Otherwise, the rest of the vitals were within normal limits. Physical exam shows right upper quadrant and epigastric pain. Patient also appears pale/jaundice. Concern for GI bleed at this time. Type and screen and 2 units of packed red blood cells have been ordered. We will give the patient 2 liter normal saline bolus. We will obtain CBC, BMP, LFTs, lipase. Patient will need admitted for further care. [address] 14:55 CT abdomen and pelvis shows gastric wall thickening which could relate to gastritis. There is also a 1 cm lesion of the right kidney. These were discussed with the hospitalist. Chest x-ray was negative for any acute pulmonary process. Hemoglobin was 8.3, however, patient was hypertensive and Hemoccult stool positive - 2 packed red blood cells started at this time. After fluids and blood, systolic blood pressure now in the 130s. Heart rate down to low 100s/high 90s. Labs also show acute kidney injury, this was treated with fluids. Patient was accepted for admission by Dr. Hubbard for further care. - Medical Records Medical records reviewed: Yes I reviewed the patient's medical records. - Lab Data Lab results reviewed: Yes I reviewed the patient's lab results. Result diagrams: 06/24/17 12:12 06/24/17 12:12 Lab Results 06/24/17 06/24/17 06/24/17 Range/Units 12:12 12:12 12:12 WBC 16.2 H (4.3-11.1) K/mcL RBC 2.64 L (4.19-5.50) M/mcL Hgb 8.3 L (12.9-16.9) g/dL Hct 24.0 L (37.5-50.1) % MCV 90.9 (83.0-100.0) fL MCH 31.4 (28.0-33.3) pg MCHC 34.6 (31.6-35.5) g/dL RDW 14.0 (11.5-14.5) % Plt Count 276 (140-400) K/mcL MPV 9.8 (9.4-12.4) fL Immature Gran % 0.6 (0-4) % Seg Neutrophils % 86.2 % Lymphocytes % 8.9 % Monocytes % 4.1 % Eosinophils % 0.0 % Basophils % 0.2 % Neutrophils # 13.9 H (1.6-8.9) K/mcL Lymphocytes # 1.4 (0.6-4.6) K/mcL Monocytes # 0.7 (0.0-1.3) K/mcL Eosinophils # 0.0 (0.0-0.6) K/mcL Basophils # 0.0 (0.0-0.2) K/mcL PT 11.5 (9.4-12.1) Seconds INR 1.1 APTT 24.7 L (26.0-36.0) Seconds Sodium 127 L (136-145) mEq/L Potassium 4.3 (3.5-5.1) mEq/L Chloride 98 (98-107) mEq/L Carbon Dioxide 20 L (23-29) mEq/L BUN 74 H (6-20) mg/dL Creatinine 1.57 H (0.70-1.30) mg/dL Est GFR ( Amer) 55 L (> 60) Est GFR (Non-Af Amer) 46 L (> 60) BUN/Creatinine Ratio 47 H (6-26) Glucose 164 H (70-105) mg/dL Calculated Osmolality 290 (280-300) Calcium 8.2 L (8.6-10.3) mg/dL Total Bilirubin 0.2 L (0.3-1.0) mg/dL AST 7 L (13-39) Units/L ALT 7 (7-52) Units/L Alkaline Phosphatase 64 (34-104) Units/L Serum Total Protein 5.4 L (6.4-8.9) g/dL Albumin 3.5 (3.5-5.7) g/dL Globulin 1.9 L (2.4-3.5) g/dL Albumin/Globulin Ratio 1.8 (1.1-2.2) Lipase 8 L (11-82) Units/L Stool Occult Blood (Negative) Stl C. diff Tox B Gene (Negative) Blood Type Antibody Screen Crossmatch 06/24/17 06/24/17 06/24/17 Range/Units 12:17 12:30 12:30 WBC (4.3-11.1) K/mcL RBC (4.19-5.50) M/mcL Hgb (12.9-16.9) g/dL Hct (37.5-50.1) % MCV (83.0-100.0) fL MCH (28.0-33.3) pg MCHC (31.6-35.5) g/dL RDW (11.5-14.5) % Plt Count (140-400) K/mcL MPV (9.4-12.4) fL Immature Gran % (0-4) % Seg Neutrophils % % Lymphocytes % % Monocytes % % Eosinophils % % Basophils % % Neutrophils # (1.6-8.9) K/mcL Lymphocytes # (0.6-4.6) K/mcL Monocytes # (0.0-1.3) K/mcL Eosinophils # (0.0-0.6) K/mcL Basophils # (0.0-0.2) K/mcL PT (9.4-12.1) Seconds INR APTT (26.0-36.0) Seconds Sodium (136-145) mEq/L Potassium (3.5-5.1) mEq/L Chloride (98-107) mEq/L Carbon Dioxide (23-29) mEq/L BUN (6-20) mg/dL Creatinine (0.70-1.30) mg/dL Est GFR ( Amer) (> 60) Est GFR (Non-Af Amer) (> 60) BUN/Creatinine Ratio (6-26) Glucose (70-105) mg/dL Calculated Osmolality (280-300) Calcium (8.6-10.3) mg/dL Total Bilirubin (0.3-1.0) mg/dL AST (13-39) Units/L ALT (7-52) Units/L Alkaline Phosphatase (34-104) Units/L Serum Total Protein (6.4-8.9) g/dL Albumin (3.5-5.7) g/dL Globulin (2.4-3.5) g/dL Albumin/Globulin Ratio (1.1-2.2) Lipase (11-82) Units/L Stool Occult Blood Positive A (Negative) Stl C. diff Tox B Gene Negative (Negative) Blood Type O POSITIVE Antibody Screen NEGATIVE Crossmatch See Detail - Radiology Data Radiology results reviewed: Yes I reviewed the patient's radiology results. Abdomen/Pelvis CT 06/24/17 12:14 IMPRESSION: 1. Nonspecific moderate gastric wall thickening which could relate to gastritis. Suggest correlation with endoscopy to exclude malignancy. 2. A 1 cm hyperdense lesion in the lateral right kidney could represent a complicated cyst or solid mass. Recommend nonemergent renal CT or MRI for further evaluation. D/ / Junior Travis MD / Junior Travis MD Interpreting Provider: Junior Travis MD Chest X-Ray 06/24/17 12:14 IMPRESSION: No acute process. D/ / Andreas Plata MD / Andreas Plata MD Interpreting Provider: Andreas Plata MD - EKG Data EKG attestation: Yes I reviewed and interpreted this EKG. Veronika - Veronika Situation: Demographics, MOA Background: Presenting Complaint, Relevant PMH, Meds, & Allergies Assessment: Vital Signs, Course and respsone to treatment, Exam Concerns, Patient/Family Expectation, Pertinant Lab Results Recommendation: Barrier(s) to disposition, Recommendation based on pending studies, treatments, or consults S.B.Dru Report Given to: Dr. Haydee Banda Repor Time: 14:58
[2017-06-24 12:34] LABS: Basophils % 0.2 %; Hemoglobin 8.3 g/dL (12.9-16.9); Immature Granulocytes % 0.6 % (0-4); Lymphocytes # 1.4 K/mcL (0.6-4.6); Lymphocytes % 8.9 %; Mean Corpuscular HGB Conc 34.6 g/dL (31.6-35.5); Mean Corpuscular Hemoglobin 31.4 pg (28.0-33.3); Mean Corpuscular Volume 90.9 fL (83.0-100.0); Mean Platelet Volume 9.8 fL (9.4-12.4); Monocytes # 0.7 K/mcL (0.0-1.3); Monocytes % 4.1 %; Neutrophils # 13.9 K/mcL (1.6-8.9); Platelet Count 276 K/mcL (140-400); Red Blood Count 2.64 M/mcL (4.19-5.50); Segmented Neutrophils % 86.2 %
[2017-06-24] MEDS ORDERED: 0.9 % Sodium Chloride 1,000 ML ONE (12:35)
[2017-06-24 12:38] LABS: INR 1.1; Prothrombin Time 11.5 Seconds (9.4-12.1)
[2017-06-24] MEDS: 0.9 % Sodium Chloride 1,000 ML IVC SCH ×11 (12:40→23:04)
[2017-06-24 12:41] LABS: Activated Partial Thrombo Time 24.7 Seconds (26.0-36.0)
[2017-06-24 13:01] LABS: Albumin 3.5 g/dL (3.5-5.7); Albumin/Globulin Ratio 1.8 (1.1-2.2); Bilirubin,Total 0.2 mg/dL (0.3-1.0); Calcium 8.2 mg/dL (8.6-10.3); Globulin 1.9 g/dL (2.4-3.5); Potassium 4.3 mEq/L (3.5-5.1); Total Protein 5.4 g/dL (6.4-8.9)
--- NOTE | 2017-06-24 13:40 | Emergency Department Note ---
Disposition Clinical Impression: GI bleed Qualifiers: GI bleed type/associated pathology: melena Qualified Code(s): K92.1 - Melena Disposition: Admitted As Inpatient Referrals: Hi Curry MD [Primary Care Provider] - Forms: ED Satisfaction Letter General Adult HPI - General Chief complaint: ED GI Bleed Stated complaint: black stool x3 days Time Seen by Provider: 06/24/17 12:12 Source: patient, EMS Mode of arrival: EMS Limitations: no limitations - History of Present Illness Pain Scale: 9 - Related Data Home Medications Medication Instructions Recorded Confirmed Cyclobenzaprine [Flexeril] 10 mg PO BID PRN 01/25/17 06/24/17 Previous Rx's Medication Instructions Recorded Benztropine [Cogentin] 1 mg PO BID 14 Days #60 tablet 01/30/17 Haloperidol [Haldol] 10 mg PO BID #60 tablet 01/30/17 Mirtazapine [Remeron] 15 mg PO HS #30 tablet 01/30/17 Quetiapine Fumarate [Seroquel] 200 mg PO HS #30 tablet 01/30/17 Naproxen 500 mg PO BID 3 Days #6 tablet 05/05/17 Allergies Allergy/AdvReac Type Severity Reaction Status Date / Time No Known Allergies Allergy Verified 01/25/17 10:59 Constitutional: Denies: fever Cardiovascular: Denies: chest pain Respiratory: Denies: cough, dyspnea Gastrointestinal: Reports: abdominal pain, nausea, vomiting, diarrhea, melena Genitourinary: Denies: urgency, dysuria Integumentary: Denies: rash Neurological: Denies: headache, weakness, numbness, paresthesias Past Medical History - Past Medical History Medical history: Reports: arthritis, COPD, hyperlipidemia Surgical history: Reports: non-contributory, other Psychiatric history: Reports: bipolar, depression, schizophrenia - Social History Smoking Status: Current every day smoker Smokeless Tobacco Status: No Alcohol use: Reports: occasionally Drug use: Reports: marijuana Physical Exam - General Limitations: no limitations General appearance: alert, cachectic (and jaundice) Course Vital Signs Temperature 99.1 F 06/24/17 12:10 Pulse Rate 118 06/24/17 12:10 Respiratory Rate 18 06/24/17 12:10 Blood Pressure 98/67 06/24/17 12:10 O2 Sat by Pulse Oximetry 100 06/24/17 12:10 Temperature 99.1 F 06/24/17 12:10 Pulse Rate 98 06/24/17 12:48 Respiratory Rate 16 06/24/17 12:48 Blood Pressure 112/75 06/24/17 12:48 O2 Sat by Pulse Oximetry 99 06/24/17 12:48 Oxygen Delivery Oxygen Delivery Room Air Medical Decision Making - Lab Data Result diagrams: 06/24/17 12:12 06/24/17 12:12 Lab Results 06/24/17 06/24/17 06/24/17 Range/Units 12:12 12:12 12:12 WBC 16.2 H (4.3-11.1) K/mcL RBC 2.64 L (4.19-5.50) M/mcL Hgb 8.3 L (12.9-16.9) g/dL Hct 24.0 L (37.5-50.1) % MCV 90.9 (83.0-100.0) fL MCH 31.4 (28.0-33.3) pg MCHC 34.6 (31.6-35.5) g/dL RDW 14.0 (11.5-14.5) % Plt Count 276 (140-400) K/mcL MPV 9.8 (9.4-12.4) fL Immature Gran % 0.6 (0-4) % Seg Neutrophils % 86.2 % Lymphocytes % 8.9 % Monocytes % 4.1 % Eosinophils % 0.0 % Basophils % 0.2 % Neutrophils # 13.9 H (1.6-8.9) K/mcL Lymphocytes # 1.4 (0.6-4.6) K/mcL Monocytes # 0.7 (0.0-1.3) K/mcL Eosinophils # 0.0 (0.0-0.6) K/mcL Basophils # 0.0 (0.0-0.2) K/mcL PT 11.5 (9.4-12.1) Seconds INR 1.1 APTT 24.7 L (26.0-36.0) Seconds Sodium 127 L (136-145) mEq/L Potassium 4.3 (3.5-5.1) mEq/L Chloride 98 (98-107) mEq/L Carbon Dioxide 20 L (23-29) mEq/L BUN 74 H (6-20) mg/dL Creatinine 1.57 H (0.70-1.30) mg/dL Est GFR ( Amer) 55 L (> 60) Est GFR (Non-Af Amer) 46 L (> 60) BUN/Creatinine Ratio 47 H (6-26) Glucose 164 H (70-105) mg/dL Calculated Osmolality 290 (280-300) Calcium 8.2 L (8.6-10.3) mg/dL Total Bilirubin 0.2 L (0.3-1.0) mg/dL AST 7 L (13-39) Units/L ALT 7 (7-52) Units/L Alkaline Phosphatase 64 (34-104) Units/L Serum Total Protein 5.4 L (6.4-8.9) g/dL Albumin 3.5 (3.5-5.7) g/dL Globulin 1.9 L (2.4-3.5) g/dL Albumin/Globulin Ratio 1.8 (1.1-2.2) Lipase 8 L (11-82) Units/L Blood Type Antibody Screen Crossmatch 06/24/17 Range/Units 12:17 WBC (4.3-11.1) K/mcL RBC (4.19-5.50) M/mcL Hgb (12.9-16.9) g/dL Hct (37.5-50.1) % MCV (83.0-100.0) fL MCH (28.0-33.3) pg MCHC (31.6-35.5) g/dL RDW (11.5-14.5) % Plt Count (140-400) K/mcL MPV (9.4-12.4) fL Immature Gran % (0-4) % Seg Neutrophils % % Lymphocytes % % Monocytes % % Eosinophils % % Basophils % % Neutrophils # (1.6-8.9) K/mcL Lymphocytes # (0.6-4.6) K/mcL Monocytes # (0.0-1.3) K/mcL Eosinophils # (0.0-0.6) K/mcL Basophils # (0.0-0.2) K/mcL PT (9.4-12.1) Seconds INR APTT (26.0-36.0) Seconds Sodium (136-145) mEq/L Potassium (3.5-5.1) mEq/L Chloride (98-107) mEq/L Carbon Dioxide (23-29) mEq/L BUN (6-20) mg/dL Creatinine (0.70-1.30) mg/dL Est GFR ( Amer) (> 60) Est GFR (Non-Af Amer) (> 60) BUN/Creatinine Ratio (6-26) Glucose (70-105) mg/dL Calculated Osmolality (280-300) Calcium (8.6-10.3) mg/dL Total Bilirubin (0.3-1.0) mg/dL AST (13-39) Units/L ALT (7-52) Units/L Alkaline Phosphatase (34-104) Units/L Serum Total Protein (6.4-8.9) g/dL Albumin (3.5-5.7) g/dL Globulin (2.4-3.5) g/dL Albumin/Globulin Ratio (1.1-2.2) Lipase (11-82) Units/L Blood Type O POSITIVE Antibody Screen NEGATIVE Crossmatch See Detail Attestation Statement - Attestation Attestation: I examined this patient and my medical decision-making was reviewed with the Resident Physician. I agree with the documented findings, disposition and treatment plan as described except to the extent set forth below. 56 year old male presntse to the ED with copmlaints of GI bleed. He is a chronic alcoholic and has a history of GI bleeds in the past secondary to peptic ulcer disea and has not been taking hismedications. Patinet states that he has been havign melenic stools and has a hgb of 8.3 WE will admit to medicine after obtaning CT scan to rule out perforation
[2017-06-24] MEDS ORDERED: 0.9 % Sodium Chloride 250 ML ONE ×2 (17:22→23:53)
[2017-06-24] MEDS ORDERED: Naloxone 0.4 MG/ML INJ IVP PRN (21:33)
[2017-06-24] MEDS ORDERED: *HR* Promethazine 25 MG/ML VIAL IVP PRN (21:39)
[2017-06-24] MEDS ORDERED: 0.9 % Sodium Chloride 500 ML IVC ONE (21:54)
[2017-06-24 22:27] LABS: Hematocrit 22.9 % (37.5-50.1); Hemoglobin 8.1 g/dL (12.9-16.9)
[2017-06-24] MEDS: Pantoprazole 40 MG in 0.9 % Sodium Chloride Mini Bag 100 ML IVC SCH (22:28)
--- NOTE | 2017-06-24 22:59 | Internal Med History&Physical ---
<KeiraryannenhanRavinder middleton - Last Filed: 06/25/17 00:04> Date of Encounter: 06/24/17 Time of Encounter: 21:00 Internal Medicine - H&P: HPI Chief complaint: Black loose stools x3 days Admitted From: Emergency Dept Plans for Post Hospital Care: Home History of present illness: Mr. Krishna is a 56 year old male w/PMH of arthritis, COPD, HLD, bipolar depression, schizophrenia, and alcohol use presents from the ED w/CC of black loose stools for the past three days. Pt. reports hx of gastric ulcers, alcohol use, and takes 1,000 mg of naproxen daily for pain. Pt. also reports that he smokes 1 PPD. Reports dizziness and lightheadedness, abdominal pain, nausea, and vomiting (emesis is non-bloody and non-bilious). Denies recent illness, recent alcohol use, fever, chills, chest pain, shortness of breath, chest congestion, cough, constipation, numbness, tingling, pre-syncope, or syncope. Past Med Surg Social Fam HX - Past Medical History Source: patient, old records reviewed Medical history: arthritis, COPD, hyperlipidemia Psychiatric history: bipolar, depression, schizophrenia - Social History Smoking Status: Current every day smoker Packs per day: 1 PPD Smokeless Tobacco Status: No Alcohol use: occasionally Drug use: marijuana Current living situation: Home Activity Level: Independent ambulation Recent Out of Country Travel Within the Last 8 Weeks: No Exposure or Possible Exposure to Illness During Travel: No - Family History Father Race: Family Member Ethnicity: Non- Living Status: (43) Age at : 43 Cause of : Myotonic dystrophy Hx Family Neuromuscular Disorders: Yes (Myotonic dystrophy) Mother Race: Family Member Ethnicity: Non- Living Status: Still Living Hx Family Musculoskeletal Disorders: Yes (Arthritis) Brother Race: Family Member Ethnicity: Non- Living Status: Age at : 52 Cause of : Myotonic dystrophy Hx Family Neuromuscular Disorders: Yes (Myotonic dystrophy) Sister Race: Family Member Ethnicity: Non- Living Status: Age at : 32 Cause of : Myotonic dystrophy Hx Family Neuromuscular Disorders: Yes (Myotonic dystrophy) Internal Medicine - H&P: Meds Cyclobenzaprine [Flexeril] 10 mg PO BID PRN 01/25/17 [History] Benztropine [Cogentin] 1 mg PO BID 14 Days #60 tablet 01/30/17 [Rx] Haloperidol [Haldol] 10 mg PO BID #60 tablet 01/30/17 [Rx] Mirtazapine [Remeron] 15 mg PO HS #30 tablet 01/30/17 [Rx] Quetiapine Fumarate [Seroquel] 200 mg PO HS #30 tablet 01/30/17 [Rx] Naproxen 500 mg PO BID 3 Days #6 tablet 05/05/17 [Rx] 3 Allergy/AdvReac Type Severity Reaction Status Date / Time No Known Allergies Allergy Verified 01/25/17 10:59 All Systems PM: A 10-system review of systems was performed and is negative for pertinent findings except as documented above in the HPI. - Constitutional Constitutional: as per HPI, no chills, no fever(s), no night sweats - EENT Eyes: no change in vision, no discharge, no pain, no photophobia Ears: no ear discharge, no ear pain, no tinnitus Nose, mouth and throat: no dysphagia, no nasal discharge, no neck pain, no sore throat - Breasts Breasts: as per HPI - Cardiovascular Cardiovascular ROS IM: no chest pain, no diaphoresis, no dyspnea, no lightheadedness, no palpitations, no syncope - Respiratory Respiratory: no cough, no dyspnea, no wheezing, no excessive phlegm production - Gastrointestinal Gastrointestinal: as per HPI, abdominal pain, loose stools, melena (X3 days), nausea, vomiting, no hematemesis, no hematochezia - Genitourinary Genitourinary ROS male: as per HPI - Musculoskeletal Musculoskeletal ROS IM: no numbness, no tingling - Integumentary Integumentary IM: no rash, no unusual bruising - Neurological Neurological ROS: no confusion, no convulsions, no focal weakness, no numbness, no tingling, no tremor(s) - Psychiatric Psychiatric: as per HPI - Endocrine Endocrine IM: as per HPI - Hematologic/Lymphatic Hematologic/Lymphatic: no easy bruising - Allergic/Immunologic Allergic/Immunologic: as per HPI - Constitutional Vitals: Temp Pulse Resp BP Pulse Ox 97.3 F L 106 16 94/60 98 06/24/17 20:56 06/24/17 20:56 05/12/18 20:56 06/24/17 20:56 06/24/17 21:09 General appearance: Present: cooperative, A&O X 3, pleasant, no acute distress, answers questions appropriately - Head Head exam: Present: atraumatic, normocephalic - Eye Eye exam: Present: PERRL, conjuntiva pink, sclera anicteric Pupils: Present: PERRL - ENT ENT exam: Present: normal exam - Neck Neck exam general surgery: Present: normal inspection, supple, trachea midline. Absent: lymphadenopathy - Respiratory Respiratory exam: Present: CTAB. Absent: accessory muscle use, rales, rhonchi, wheezes - Cardiovascular Cardiovascular exam: Present: RRR, +S1, +S2. Absent: diastolic murmur, gallop, rubs, systolic murmur - GI/Abdominal GI/Abdominal exam: Present: diminished bowel sounds, soft, tenderness, no peritoneal signs. Absent: distended - Rectal Rectal exam: Present: deferred - Additional comments: exam deferred. - Extremities Exam Extremities exam: Present: warm, radial pulses palpable and symmetrical. Absent : calf tenderness, cyanotic, pedal edema - Back Exam Back exam: Present: normal inspection - Neurological Exam Neurological exam: Present: CN II-XII intact, oriented X3, no focal deficits. Absent: pronater drift, facial droop, speech deficit - Psychiatric Psychiatric exam: Present: normal affect, normal mood - Skin Skin exam: Present: dry, intact Internal Med - H&P Results - Labs CBC & Chem 7: 06/24/17 22:13 06/24/17 12:12 Labs: Short CBC 06/24/17 Range/Units 22:13 Hgb 8.1 L (12.9-16.9) g/dL Hct 22.9 L (37.5-50.1) % - Diagnostic Studies CT scan - abdomen Additional comments: Impressions Abdomen/Pelvis CT 06/24/17 12:14 IMPRESSION: 1. Nonspecific moderate gastric wall thickening which could relate to gastritis. Suggest correlation with endoscopy to exclude malignancy. 2. A 1 cm hyperdense lesion in the lateral right kidney could represent a complicated cyst or solid mass. Recommend nonemergent renal CT or MRI for further evaluation. D/ / Junior Travis MD / Junior Travis MD Interpreting Provider: Junior Travis MD Chest x-ray Additional comments: Impressions Chest X-Ray 06/24/17 12:14 IMPRESSION: No acute process. D/ / Andreas Plata MD / Andreas Plata MD Interpreting Provider: Andreas Plata MD - Assessment and plan (1) GI bleed Current Visit: Yes Status: Acute Assessment and plan: Acute GI bleeding which is presenting as melanotic loose stools for the past three days. Pt. reports hx of gastric ulcers and alcohol use. Also reports taking 1,000 mg of naproxen daily for arthritis. Fecal hemoccult positive. Hgb 8.3 on admission at 12:12. 8.1 at 23:13. H/H Q6HR ordered. Pt. typed and screened w/O positive w/negative antibody screen. Transfusion order for 1 unit of PRBCs placed if Hgb <7. NPO status. Protonix drip. GI consult ordered and discussed w/Dr. Matos and I appreciate the consult and recommendations. Pt. discussed w/Dr. Rogers who agrees w/plan of care. Pt. is high risk for further morbidity d/t current GI bleeding, dropping Hgb, SHAMIR, dehydration from N/V/ Diarrhea x3 days, hyponatremia, hx, and risk factors. Inpatient. Qualifiers: GI bleed type/associated pathology: melena Qualified Code(s): K92.1 - Melena (2) SHAMIR (acute kidney injury) Current Visit: Yes Status: Acute Assessment and plan: Acute SHAMIR w/GFR of 46 and creatinine of 1.57. Previously WNL. Most likely d/t dehydration from reduced oral intake and 3 days of N/V/Diarrhea. Pt. receiving IV fluids. Will avoid nephrotoxins and monitor pts. f/u labs. Monitor I&O. (3) Hypotension Current Visit: Yes Status: Acute Assessment and plan: Acute hypotension most likely d/t GI bleed. Pt. receiving IV fluids. Will avoid pain medications that will cause further hypotension. Monitor pt. and VS. Qualifiers: Hypotension type: unspecified hypotension type Qualified Code(s): I95.9 - Hypotension, unspecified (4) Hyponatremia Current Visit: Yes Status: Acute Assessment and plan: Acute hyponatremia w/sodium of 127 on admission. Pt. received IV fluid bolus in ED. 500 mL bolus added and to be followed by 100 mL/HR. Monitor sodium in a.m. labs. (5) COPD (chronic obstructive pulmonary disease) Current Visit: Yes Status: Chronic Assessment and plan: Hx of chronic COPD. Stable. Supplemental O2 w/titration and SpO2 monitoring PRN. Qualifiers: COPD type: unspecified COPD Qualified Code(s): J44.9 - Chronic obstructive pulmonary disease, unspecified (6) HLD (hyperlipidemia) Current Visit: Yes Status: Chronic Assessment and plan: Hx of chronic HLD accroding to pt. but he currently does not take statin. Lipid panel in a.m. labs. Consider adding statin if warranted by panel results. Qualifiers: Hyperlipidemia type: pure hypercholesterolemia Qualified Code(s): E78.00 - Pure hypercholesterolemia, unspecified; E78.0 - Pure hypercholesterolemia (7) Arthritis Current Visit: Yes Status: Chronic Assessment and plan: Hx of chronic arthritis. Will hold pts. Naproxen d/t current bleeding and renal dysfunction. (8) Schizophrenia, paranoid, chronic Current Visit: Yes Status: Chronic Assessment and plan: Hx of chronic paranoid schizophrenia. Continue pts. medications when no longer NPO. (9) Bipolar depression Current Visit: Yes Status: Chronic Assessment and plan: Hx of bipolar depression. Continue pts. medications when no longer NPO. (10) DVT prophylaxis Current Visit: Yes Status: Acute Assessment and plan: Bilateral SCDs on LEs for DVT prophylaxis d/t current report of black stools and drop in Hgb. (11) Alcohol use Current Visit: Yes Status: Chronic Assessment and plan: Hx of reported alcohol use. Frequency is unclear. Hepatic panel and blood alcohol level ordered. CIWA scale and protocol. - Time Spent With Patient Total time spent is greater than 50% in coordination of care (as documented) at patient's floor/unit and/or counseling patient: Greater than 35 minutes <Clemencia Rogers - Last Filed: 06/25/17 00:19> Date of Encounter: 06/25/17 Internal Medicine - H&P: HPI History of present illness: Mr. Krishna is a 56 year old male All Systems PM: A 10-system review of systems was performed and is negative for pertinent findings except as documented above in the HPI. - Constitutional Vitals: Temp Pulse Resp BP Pulse Ox 98.9 F 106 16 94/60 98 06/24/17 23:31 06/24/17 23:31 06/24/17 23:31 06/24/17 23:31 06/24/17 23:31 Internal Med - H&P Results - Labs CBC & Chem 7: 06/24/17 22:13 06/24/17 12:12 Labs: Short CBC 06/24/17 Range/Units 22:13 Hgb 8.1 L (12.9-16.9) g/dL Hct 22.9 L (37.5-50.1) % Liver Function 06/24/17 Range/Units 23:05 Total Bilirubin 0.2 L (0.3-1.0) mg/dL Direct Bilirubin 0.0 (0.0-0.2) mg/dL AST 7 L (13-39) Units/L ALT 5 L (7-52) Units/L Alkaline Phosphatase 49 (34-104) Units/L Albumin 2.9 L (3.5-5.7) g/dL - Attending Attestation I have seen and examined this patient independently. I have discussed with COST ACCOUNTING CLERK Mr. Feliciano regarding the management plan. Agree with the documentation. - Assessment and plan (1) Schizophrenia, paranoid, chronic Current Visit: Yes Status: Chronic (2) GI bleed Current Visit: Yes Status: Acute Qualifiers: GI bleed type/associated pathology: melena Qualified Code(s): K92.1 - Melena (3) SHAMIR (acute kidney injury) Current Visit: Yes Status: Acute (4) Hypotension Current Visit: Yes Status: Acute Qualifiers: Hypotension type: unspecified hypotension type Qualified Code(s): I95.9 - Hypotension, unspecified (5) Bipolar depression Current Visit: Yes Status: Chronic (6) COPD (chronic obstructive pulmonary disease) Current Visit: Yes Status: Chronic Qualifiers: COPD type: unspecified COPD Qualified Code(s): J44.9 - Chronic obstructive pulmonary disease, unspecified (7) HLD (hyperlipidemia) Current Visit: Yes Status: Chronic Qualifiers: Hyperlipidemia type: pure hypercholesterolemia Qualified Code(s): E78.00 - Pure hypercholesterolemia, unspecified; E78.0 - Pure hypercholesterolemia (8) Arthritis Current Visit: Yes Status: Chronic (9) DVT prophylaxis Current Visit: Yes Status: Acute (10) Hyponatremia Current Visit: Yes Status: Acute (11) Alcohol use Current Visit: Yes Status: Chronic - Time Spent With Patient Total time spent is greater than 50% in coordination of care (as documented) at patient's floor/unit and/or counseling patient:
[2017-06-24] MEDS ORDERED: *HR* LORazepam 2 MG/ML VIAL IVP PRN ×3 (23:07)
[2017-06-24] MEDS: Nicotine 14 MG PATCH.TD24 TD SCH (23:07)
[2017-06-24 23:33] LABS: Alanine Aminotransferase 5 Units/L (7-52); Albumin 2.9 g/dL (3.5-5.7); Albumin/Globulin Ratio 1.8 (1.1-2.2); Alkaline Phosphatase 49 Units/L (34-104); Aspartate Amino Transferase 7 Units/L (13-39); Bilirubin,Indirect 0.2 mg/dL (0.0-1.2); Bilirubin,Total 0.2 mg/dL (0.3-1.0); Ethanol < 10 mg/dL (Less than 10); Globulin 1.6 g/dL (2.4-3.5); Total Protein 4.5 g/dL (6.4-8.9)
[2017-06-25 01:13] LABS: Basophils % 0.2 %; Hematocrit 20.2 % (37.5-50.1); Immature Granulocytes % 0.2 % (0-4); Lymphocytes # 1.8 K/mcL (0.6-4.6); Lymphocytes % 19.7 %; Mean Corpuscular HGB Conc 34.7 g/dL (31.6-35.5); Mean Corpuscular Hemoglobin 31.1 pg (28.0-33.3); Mean Corpuscular Volume 89.8 fL (83.0-100.0); Mean Platelet Volume 9.9 fL (9.4-12.4); Monocytes # 0.7 K/mcL (0.0-1.3); Monocytes % 7.2 %; Neutrophils # 6.7 K/mcL (1.6-8.9); Platelet Count 141 K/mcL (140-400); Red Blood Count 2.25 M/mcL (4.19-5.50); Red Cell Distribution Width 15.1 % (11.5-14.5); Segmented Neutrophils % 72.7 %
[2017-06-25 01:36] LABS: Alanine Aminotransferase 5 Units/L (7-52); Albumin 2.7 g/dL (3.5-5.7); Albumin/Globulin Ratio 1.7 (1.1-2.2); Alkaline Phosphatase 47 Units/L (34-104); Aspartate Amino Transferase 6 Units/L (13-39); BUN/Creatinine Ratio 60 (6-26); Bilirubin,Total 0.2 mg/dL (0.3-1.0); Blood Urea Nitrogen 58 mg/dL (6-20); Calcium 7.5 mg/dL (8.6-10.3); Carbon Dioxide 22 mEq/L (23-29); Chloride 108 mEq/L (98-107); Chol/HDL Ratio 4.5 (0-4.9); Cholesterol 94 mg/dL (< 200); Globulin 1.6 g/dL (2.4-3.5); Glucose 113 mg/dL (70-105); HDL Cholesterol 21 mg/dL (40-59); LDL Cholesterol,Calculated 35 mg/dL (0-99); Magnesium 1.9 mg/dL (1.6-2.6); Osmolality,Calculated 293 (280-300); Potassium 4.4 mEq/L (3.5-5.1); Sodium 133 mEq/L (136-145); Total Protein 4.3 g/dL (6.4-8.9); Triglycerides 191 mg/dL (< 150); eGFR For African Americans > 60 (> 60); eGFR For Non-African Americans > 60 (> 60)
[2017-06-25] MEDS: Pantoprazole 40 MG in 0.9 % Sodium Chloride Mini Bag 100 ML IVC SCH ×5 (03:14→23:27)
[2017-06-25] MEDS: Nicotine 14 MG PATCH.TD24 TD SCH (08:29)
[2017-06-25 08:36] LABS: Estimated Average Glucose 117 mg/dl; Hemoglobin A1C 5.7 %
[2017-06-25] MEDS: 0.9 % Sodium Chloride 1,000 ML IVC SCH ×2 (09:22→19:52)
--- NOTE | 2017-06-25 09:24 | General Surgery Consult Note ---
Date of Encounter: 06/25/17 Time of Encounter: 08:15 History of Present Illness Consult date: 06/24/17 Requesting physician: Ravinder Feliciano History of present illness: 56-year-old male referred for further evaluation and treatment of anemia and melena. The patient apparently presented to [facility] Emergency Department with complaints of lightheadedness, nausea, and vomiting. The vomiting was described as nonbloody and nonbilious. In the course of his evaluation it was determined that the patient had black tarry diarrhea which apparently has been ongoing for 3 days. Hemoglobin on presentation 8.3, hematocrit 24. Repeat H&H later that evening 8.1 and 22.9. Another repeat 7.0 and 20.2. Overnight the patient has received 3 units of blood with repeat H&H this morning 7.0 and 20.0. Platelet count on presentation 276,000; repeat 141,000. The patient is a rather poor historian. He describes a prior history of GI bleed requiring 5 units of packed cells but no endoscopic evaluation. Past medical history is also notable for bipolar depression, schizophrenia, alcohol use/abuse; arthritis, COPD, hyperlipidemia. Medical records indicate previous history of gastric ulcers and daily use of naproxen 1000 mg for unspecified pain. 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 Quantities and volumes are vague. Physical examination: Ill kempt, appears older than stated age. He is in no acute distress vital signs indicates that he is hypotensive. He is 1.73 m tall, 69.8 kg; BMI 23.4; current blood pressure 94/60, pulse 93 but has been as high as 103 during the night; respiratory rate 17. He is afebrile, currently 97.6. Skin: Warm, no obvious jaundice Lungs: Clear bilaterally; no obvious pain on deep inspiration Cardiac: Regular rate, no appreciable murmurs Well-healed low, sternal/midline surgical scar Abdomen: Soft, scaphoid, nontender. No obvious organomegaly, or intra- abdominal masses. Hypoactive bowel sounds. Rectal: Bright red blood per rectum Extremities: No obvious clubbing, cyanosis, or edema. Feet are black/dirty. Laboratories: Most recent white count 9.3, hemoglobin 7.0, hematocrit 20.0; platelet count 141,000; differential within normal limits (on presentation to ED neutrophilia 13.9 percent - resolved). Current sodium 133, potassium 4.4, BUN has improved from 74-58; creatinine has improved from 1.57-0.96 LFTs notable for markedly depressed protein of 4.3; albumin 2.7 Impression: 56-year-old male, referred to me ([facility]) for anemia , GI hemorrhage. Hemoglobin/hematocrit has fallen to 7.0/20.2 despite transfusion of 3 units of blood since presentation. It is possible that this is an upper GI bleed related to the patient's history of peptic ulcer disease, alcohol use/abuse and continued use of naproxen There are possible esophageal varices. Recommendations: EGD this morning with further recommendations to be made based on the endoscopic findings. The patient's continued care and management has been discussed with Dr Lozada - transfer to ICU for more aggressive monitoring and intervention is planned. Impression: Past Med Surg Social Fam HX - Past Medical History Medical history: arthritis, COPD, hyperlipidemia Psychiatric history: bipolar, depression, schizophrenia - Past Surgical History Surgical History: non-contributory, other - Social History Smoking Status: Current every day smoker Packs per day: 1 PPD Smokeless Tobacco Status: No Alcohol use: occasionally Drug use: marijuana - Family History Father Sister Hx Family Neuromuscular Disorders: Yes (myotonic dystropphy) Father Race: Family Member Ethnicity: Non- Living Status: (43) Age at : 43 Cause of : Myotonic dystrophy Hx Family Neuromuscular Disorders: Yes (Myotonic dystrophy) Mother Race: Family Member Ethnicity: Non- Living Status: Still Living Hx Family Musculoskeletal Disorders: Yes (Arthritis) Brother Race: Family Member Ethnicity: Non- Living Status: Age at : 52 Cause of : Myotonic dystrophy Hx Family Neuromuscular Disorders: Yes (Myotonic dystrophy) Sister Race: Family Member Ethnicity: Non- Living Status: Age at : 32 Cause of : Myotonic dystrophy Hx Family Neuromuscular Disorders: Yes (Myotonic dystrophy) Medications and Allergies Cyclobenzaprine [Flexeril] 10 mg PO BID PRN 01/25/17 [History] Benztropine [Cogentin] 1 mg PO BID 14 Days #60 tablet 01/30/17 [Rx] Haloperidol [Haldol] 10 mg PO BID #60 tablet 01/30/17 [Rx] Mirtazapine [Remeron] 15 mg PO HS #30 tablet 01/30/17 [Rx] Quetiapine Fumarate [Seroquel] 200 mg PO HS #30 tablet 01/30/17 [Rx] Naproxen 500 mg PO BID 3 Days #6 tablet 05/05/17 [Rx] 3 Allergy/AdvReac Type Severity Reaction Status Date / Time No Known Allergies Allergy Verified 01/25/17 10:59 Review of Systems All systems PM: The remainder of the systems were reviewed and are negative General Surgery Exam Initial Vital Signs Temp Pulse Resp BP Pulse Ox 99.1 F 118 18 98/67 100 06/24/17 12:10 06/24/17 12:10 06/24/17 12:10 06/24/17 12:10 06/24/17 12:10 Exam Initial Vital Signs Temp Pulse Resp BP Pulse Ox 99.1 F 118 18 98/67 100 06/24/17 12:10 06/24/17 12:10 06/24/17 12:10 06/24/17 12:10 06/24/17 12:10 Results - Labs 06/25/17 07:01 06/25/17 00:31 Abnormal lab results RBC 2.25 M/mcL (4.19-5.50) L 06/25/17 00:31 Hgb 7.0 g/dL (12.9-16.9) L 06/25/17 07:01 Hct 20.0 % (37.5-50.1) L 06/25/17 07:01 RDW 15.1 % (11.5-14.5) H 06/25/17 00:31 APTT 24.7 Seconds (26.0-36.0) L 06/24/17 12:12 Sodium 133 mEq/L (136-145) L 06/25/17 00:31 Chloride 108 mEq/L (98-107) H 06/25/17 00:31 Carbon Dioxide 22 mEq/L (23-29) L 06/25/17 00:31 BUN 58 mg/dL (6-20) H 06/25/17 00:31 BUN/Creatinine Ratio 60 (6-26) H 06/25/17 00:31 Glucose 113 mg/dL (70-105) H 06/25/17 00:31 Hemoglobin A1c 5.7 % (-5.6) H 06/25/17 00:31 Calcium 7.5 mg/dL (8.6-10.3) L 06/25/17 00:31 Total Bilirubin 0.2 mg/dL (0.3-1.0) L 06/25/17 00:31 AST 6 Units/L (13-39) L 06/25/17 00:31 ALT 5 Units/L (7-52) L 06/25/17 00:31 Serum Total Protein 4.3 g/dL (6.4-8.9) L 06/25/17 00:31 Albumin 2.7 g/dL (3.5-5.7) L 06/25/17 00:31 Globulin 1.6 g/dL (2.4-3.5) L 06/25/17 00:31 Triglycerides 191 mg/dL (< 150) H 06/25/17 00:31 VLDL Cholesterol, Calc 38 mg/dL (< 31) H 06/25/17 00:31 HDL Cholesterol 21 mg/dL (40-59) L 06/25/17 00:31 Lipase 8 Units/L (11-82) L 06/24/17 12:12 Stool Occult Blood Positive (Negative) A 06/24/17 12:30 Diabetes panel 06/24/17 06/25/17 06/25/17 Range/Units 23:05 00:31 00:31 Sodium 133 L (136-145) mEq/L Potassium 4.4 (3.5-5.1) mEq/L Chloride 108 H (98-107) mEq/L Carbon Dioxide 22 L (23-29) mEq/L BUN 58 H (6-20) mg/dL Creatinine 0.96 (0.70-1.30) mg/dL Glucose 113 H (70-105) mg/dL Hemoglobin A1c 5.7 H ( - 5.6) % Calcium 7.5 L (8.6-10.3) mg/dL AST 7 L 6 L (13-39) Units/L ALT 5 L 5 L (7-52) Units/L Alkaline Phosphatase 49 47 (34-104) Units/L Albumin 2.9 L 2.7 L (3.5-5.7) g/dL Triglycerides 191 H (< 150) mg/dL HDL Cholesterol 21 L (40-59) mg/dL Calcium panel 06/24/17 06/25/17 Range/Units 23:05 00:31 Calcium 7.5 L (8.6-10.3) mg/dL Albumin 2.9 L 2.7 L (3.5-5.7) g/dL Pituitary panel 06/25/17 Range/Units 00:31 Sodium 133 L (136-145) mEq/L Potassium 4.4 (3.5-5.1) mEq/L Chloride 108 H (98-107) mEq/L Carbon Dioxide 22 L (23-29) mEq/L BUN 58 H (6-20) mg/dL Creatinine 0.96 (0.70-1.30) mg/dL Glucose 113 H (70-105) mg/dL Calcium 7.5 L (8.6-10.3) mg/dL Adrenal panel 06/24/17 06/25/17 Range/Units 23:05 00:31 Sodium 133 L (136-145) mEq/L Potassium 4.4 (3.5-5.1) mEq/L Chloride 108 H (98-107) mEq/L Carbon Dioxide 22 L (23-29) mEq/L BUN 58 H (6-20) mg/dL Creatinine 0.96 (0.70-1.30) mg/dL Glucose 113 H (70-105) mg/dL Calcium 7.5 L (8.6-10.3) mg/dL Total Bilirubin 0.2 L 0.2 L (0.3-1.0) mg/dL AST 7 L 6 L (13-39) Units/L ALT 5 L 5 L (7-52) Units/L Alkaline Phosphatase 49 47 (34-104) Units/L Albumin 2.9 L 2.7 L (3.5-5.7) g/dL All other labs normal. Consult Discharge Plan - Plan Referrals: Hi Curry MD [Primary Care Provider] -
[2017-06-25] MEDS ORDERED: Tetracaine/Benzocaine/Butamben 200MG/SPRAY (100SPY/BOT) MM ONE (09:43)
[2017-06-25] MEDS ORDERED: *HR* FentaNYL (PF) 100 MCG/2 ML VIAL IVP ONE (09:43)
[2017-06-25] MEDS ORDERED: *HR* Midazolam HCl 2 MG/2 ML VIAL IVP ONE (09:43)
[2017-06-25] MEDS ORDERED: Simethicone 40 MG/0.6 ML MLS IR ONE (09:43)
--- NOTE | 2017-06-25 09:43 | Pre-Sedation Evaluation ---
Pre-sedation evaluation - Pre-sedation checklist Date of procedure: 06/25/17 Procedure: EGD Recent Vitals: Last Vital Signs Temp 97.6 F 06/25/17 08:04 Pulse 93 06/25/17 08:04 Resp 17 06/25/17 08:04 BP 94/60 06/25/17 08:04 Pulse Ox 100 06/25/17 08:04 H&P (including ROS) documented in medical record: Yes Previous reaction to sedatives/anesthetics: No Dietary Status: NPO after Midnight Airway Assessment: Patient can open mouth completely, TMJ function normal, Micrognathia (under-bite, receding chin) absent, Neck with adequate range of motion Dentition: No loose teeth or bridges Possible difficult airway: No ASA Classification *see protocol: CLASS III-Severe systemic disease Plan of Care: Pt appropriate candidate for procedure/moderate/conscious sedation , Risks/benefits of procedure/sedation discussed w/ patient/family, If not NPO; Risk of intake outweiged by necessity to perform procedure
[2017-06-25] MEDS ORDERED: *HR* FentaNYL (PF) 100 MCG/2 ML VIAL ONE (09:51)
[2017-06-25] MEDS ORDERED: *HR* Midazolam HCl 5 MG/5 ML VIAL IVP ONE (09:51)
--- NOTE | 2017-06-25 10:05 | Internal Med Progress Note ---
Date of Encounter: 06/25/17 Time of Encounter: 10:02 - Assessment and plan (1) GI bleed Current Visit: Yes Status: Acute Assessment and plan: Has reported history of PUD with frequent NSAID use. Hemoglobin 8.3 on admission. Being transfused 3 units with plans for additional 3 units. Continue Protonix drip Patient to undergo EGD today. Continue to monitor vitals closely Cycle H&H q6H transfer patient to ICU after EGD for closer monitoring Qualifiers: GI bleed type/associated pathology: melena Qualified Code(s): K92.1 - Melena (2) Schizophrenia, paranoid, chronic Current Visit: Yes Status: Chronic Assessment and plan: Hx of chronic paranoid schizophrenia. Continue pts. medications when no longer NPO. (3) SHAMIR (acute kidney injury) Current Visit: Yes Status: Acute Assessment and plan: Resolved, likely hypoperfusion. (4) Hypotension Current Visit: Yes Status: Acute Assessment and plan: Secondary to acute blood loss, continue PRBC and rescusitate as needed. Qualifiers: Hypotension type: unspecified hypotension type Qualified Code(s): I95.9 - Hypotension, unspecified (5) Bipolar depression Current Visit: Yes Status: Chronic Assessment and plan: Hx of bipolar depression. Continue pts. medications when no longer NPO. (6) COPD (chronic obstructive pulmonary disease) Current Visit: Yes Status: Chronic Assessment and plan: Hx of chronic COPD. Stable. Supplemental O2 w/titration and SpO2 monitoring PRN. Qualifiers: COPD type: unspecified COPD Qualified Code(s): J44.9 - Chronic obstructive pulmonary disease, unspecified (7) HLD (hyperlipidemia) Current Visit: Yes Status: Chronic Assessment and plan: Hx of chronic HLD accroding to pt. but he currently does not take statin. Lipid panel in a.m. labs. Consider adding statin if warranted by panel results. Qualifiers: Hyperlipidemia type: pure hypercholesterolemia Qualified Code(s): E78.00 - Pure hypercholesterolemia, unspecified; E78.0 - Pure hypercholesterolemia (8) Arthritis Current Visit: Yes Status: Chronic Assessment and plan: Hx of chronic arthritis. Will hold pts. Naproxen d/t current bleeding and renal dysfunction. (9) Hyponatremia Current Visit: Yes Status: Acute Assessment and plan: Acute hyponatremia w/sodium of 127 on admission. Pt. received IV fluid bolus in ED. 500 mL bolus added and to be followed by 100 mL/HR. Monitor sodium in a.m. labs. (10) Alcohol use Current Visit: Yes Status: Chronic Assessment and plan: States last drink was 3 days prior to admission States never had history of etoh withdrawal - continue CIWA scale and protocol. (11) DVT prophylaxis Current Visit: Yes Status: Acute Assessment and plan: Bilateral SCDs on LEs for DVT prophylaxis d/t current report of black stools and drop in Hgb. - Time Spent With Patient Total time spent is greater than 50% in coordination of care (as documented) at patient's floor/unit and/or counseling patient: - Subjective Interval history: Patient has no complaints. He denies cp, sob, n/v, diarrhea/constipation. - Constitutional Vitals: Temp Pulse Resp BP Pulse Ox 97.6 F 93 17 94/60 100 06/25/17 08:04 06/25/17 08:04 06/25/17 08:04 06/25/17 08:04 06/25/17 08:04 General appearance: Present: cooperative, A&O X 3, pleasant, no acute distress, answers questions appropriately - Head Head exam: Present: atraumatic, normocephalic - Eye Eye exam: Present: PERRL, conjuntiva pink, sclera anicteric Pupils: Present: PERRL - Neck Neck exam general surgery: Present: supple, trachea midline. Absent: lymphadenopathy - Respiratory Respiratory exam: Present: CTAB. Absent: accessory muscle use, rales, rhonchi, wheezes - Cardiovascular Cardiovascular exam: Present: RRR, +S1, +S2. Absent: diastolic murmur, gallop, rubs, systolic murmur - GI/Abdominal GI/Abdominal exam: Present: normal bowel sounds, soft, no peritoneal signs. Absent: distended, tenderness - Extremities Exam Extremities exam: Present: warm, radial pulses palpable and symmetrical. Absent : calf tenderness, cyanotic, pedal edema - Neurological Exam Neurological exam: Present: CN II-XII intact, oriented X3, no focal deficits. Absent: pronater drift, facial droop, speech deficit - Skin Skin exam: Present: dry, intact Internal Medicine: Result - Labs CBC & Chem 7: 06/25/17 07:01 06/25/17 00:31 Labs: Short CBC 0506/25/17 06/25/17 Range/Units 22:13 00:31 07:01 WBC 9.3 (4.3-11.1) K/mcL Hgb 8.1 L 7.0 L 7.0 L (12.9-16.9) g/dL Hct 22.9 L 20.2 L 20.0 L (37.5-50.1) % Plt Count 141 (140-400) K/mcL Neutrophils # 6.7 (1.6-8.9) K/mcL BMP 06/25/17 00:31 Sodium 133 L Potassium 4.4 Chloride 108 H Carbon Dioxide 22 L BUN 58 H Creatinine 0.96 Glucose 113 H Calcium 7.5 L Liver Function 06/24/17 06/25/17 Range/Units 23:05 00:31 Total Bilirubin 0.2 L 0.2 L (0.3-1.0) mg/dL Direct Bilirubin 0.0 (0.0-0.2) mg/dL AST 7 L 6 L (13-39) Units/L ALT 5 L 5 L (7-52) Units/L Alkaline Phosphatase 49 47 (34-104) Units/L Albumin 2.9 L 2.7 L (3.5-5.7) g/dL - ABG Interpretation ABG results: PT/INR, D-dimer PT 11.5 Seconds (9.4-12.1) 06/24/17 12:12 - VTE Documentation of Mechanical Device: Intermittent pneumatic compression device Consult Discharge Plan - Plan Referrals: Hi Curry MD [Primary Care Provider] -
[2017-06-25] MEDS: Acetaminophen 325 MG TABLET PO PRN (17:51)
[2017-06-25] MEDS ORDERED: 0.9 % Sodium Chloride 250 ML ONE (19:48)
[2017-06-25] MEDS: Mirtazapine 15 MG TABLET PO SCH (19:54)
[2017-06-25] MEDS: *HR* FentaNYL (PF) 100 MCG/2 ML VIAL IVP PRN (21:36)
[2017-06-26 00:38] LABS: Basophils % 0.3 %; Eosinophils % 0.5 %; Hemoglobin 7.1 g/dL (12.9-16.9); Immature Granulocytes % 0.6 % (0-4); Lymphocytes # 2.2 K/mcL (0.6-4.6); Lymphocytes % 35.5 %; Mean Corpuscular HGB Conc 35.5 g/dL (31.6-35.5); Mean Corpuscular Hemoglobin 30.2 pg (28.0-33.3); Mean Corpuscular Volume 85.1 fL (83.0-100.0); Mean Platelet Volume 9.9 fL (9.4-12.4); Monocytes # 0.4 K/mcL (0.0-1.3); Monocytes % 6.5 %; Neutrophils # 3.5 K/mcL (1.6-8.9); Platelet Count 117 K/mcL (140-400); Red Blood Count 2.35 M/mcL (4.19-5.50); Red Cell Distribution Width 16.4 % (11.5-14.5); Segmented Neutrophils % 56.6 %
[2017-06-26 01:04] LABS: Alanine Aminotransferase 5 Units/L (7-52); Albumin 2.3 g/dL (3.5-5.7); Albumin/Globulin Ratio 1.8 (1.1-2.2); Alkaline Phosphatase 35 Units/L (34-104); Aspartate Amino Transferase 6 Units/L (13-39); BUN/Creatinine Ratio 44 (6-26); Bilirubin,Total 0.2 mg/dL (0.3-1.0); Blood Urea Nitrogen 33 mg/dL (6-20); Calcium 7.3 mg/dL (8.6-10.3); Carbon Dioxide 22 mEq/L (23-29); Chloride 113 mEq/L (98-107); Globulin 1.3 g/dL (2.4-3.5); Glucose 96 mg/dL (70-105); Osmolality,Calculated 289 (280-300); Sodium 136 mEq/L (136-145); Total Protein 3.6 g/dL (6.4-8.9); eGFR For African Americans > 60 (> 60); eGFR For Non-African Americans > 60 (> 60)
[2017-06-26] MEDS: Pantoprazole 40 MG in 0.9 % Sodium Chloride Mini Bag 100 ML IVC SCH ×4 (04:30→19:59)
[2017-06-26] MEDS: 0.9 % Sodium Chloride 1,000 ML IVC SCH (05:13)
[2017-06-26 05:56] LABS: Hematocrit 20.5 % (37.5-50.1); Hemoglobin 7.1 g/dL (12.9-16.9)
[2017-06-26] MEDS: Nicotine 14 MG PATCH.TD24 TD SCH (08:52)
[2017-06-26] MEDS ORDERED: 0.9 % Sodium Chloride 1,000 ML IVC SCH (10:22)
--- NOTE | 2017-06-26 10:46 | Internal Med Progress Note ---
Date of Encounter: 06/26/17 Time of Encounter: 10:43 - Assessment and plan (1) GI bleed Current Visit: Yes Status: Acute Assessment and plan: Has reported history of PUD with frequent NSAID use. Hemoglobin 8.3 on admission. Has required 6 units PRBC EGD done 06/25 showed recent bleeding in duodenal bulb, duodenitis, gastritis. He was transferred to ICU for close monitoring, but EGD showed no acite bleed and patient is hemodynamically stable. Continue Protonix drip Monitor vitals closely Cycle H&H q6H - transfuse as needed Okay to transfer to med/surg floor. ADAT Qualifiers: GI bleed type/associated pathology: melena Qualified Code(s): K92.1 - Melena (2) SHAMIR (acute kidney injury) Current Visit: Yes Status: Acute Assessment and plan: Resolved, likely related to anemia (3) Schizophrenia, paranoid, chronic Current Visit: Yes Status: Chronic Assessment and plan: Hx of chronic paranoid schizophrenia. Continue pts. medications (4) Hypotension Current Visit: Yes Status: Acute Assessment and plan: Secondary to acute blood loss, continue PRBC and rescusitate as needed. IV fluid rate increased today. Qualifiers: Hypotension type: unspecified hypotension type Qualified Code(s): I95.9 - Hypotension, unspecified (5) Bipolar depression Current Visit: Yes Status: Chronic Assessment and plan: Hx of bipolar depression. Continue pts. medications (6) COPD (chronic obstructive pulmonary disease) Current Visit: Yes Status: Chronic Assessment and plan: Hx of chronic COPD. Stable. Supplemental O2 w/titration and SpO2 monitoring PRN. Qualifiers: COPD type: unspecified COPD Qualified Code(s): J44.9 - Chronic obstructive pulmonary disease, unspecified (7) HLD (hyperlipidemia) Current Visit: Yes Status: Chronic Assessment and plan: Hx of chronic HLD accroding to pt. but he currently does not take statin. Lipid panel in a.m. labs. Consider adding statin if warranted by panel results. Qualifiers: Hyperlipidemia type: pure hypercholesterolemia Qualified Code(s): E78.00 - Pure hypercholesterolemia, unspecified; E78.0 - Pure hypercholesterolemia (8) Arthritis Current Visit: Yes Status: Chronic Assessment and plan: Hx of chronic arthritis. No NSAIDs due to GIB, discussed this with patient. (9) Hyponatremia Current Visit: Yes Status: Acute Assessment and plan: Resolved (10) Alcohol use Current Visit: Yes Status: Chronic Assessment and plan: States last drink was 3 days prior to admission States never had history of etoh withdrawal - continue CIWA scale and protocol. (11) DVT prophylaxis Current Visit: Yes Status: Acute Assessment and plan: Bilateral SCDs on LEs for DVT prophylaxis d/t current report of black stools and drop in Hgb. - Time Spent With Patient Total time spent is greater than 50% in coordination of care (as documented) at patient's floor/unit and/or counseling patient: - Subjective Interval history: Patient has no complaints. He denies cp, sob, n/v, diarrhea/constipation. No abdominal pain. States he s feeling good. - Constitutional Vitals: Temp Pulse Resp BP Pulse Ox 98.2 F 99 16 98/51 100 06/26/17 07:36 06/26/17 10:00 06/26/17 10:00 06/26/17 10:00 06/26/17 10:00 General appearance: Present: cooperative, A&O X 3, pleasant, no acute distress, answers questions appropriately - Head Head exam: Present: atraumatic, normocephalic - Eye Eye exam: Present: PERRL, conjuntiva pink, sclera anicteric Pupils: Present: PERRL - Neck Neck exam general surgery: Present: supple, trachea midline. Absent: lymphadenopathy - Respiratory Respiratory exam: Present: CTAB. Absent: accessory muscle use, rales, rhonchi, wheezes - Cardiovascular Cardiovascular exam: Present: RRR, +S1, +S2. Absent: diastolic murmur, gallop, rubs, systolic murmur - GI/Abdominal GI/Abdominal exam: Present: normal bowel sounds, soft, no peritoneal signs. Absent: distended, tenderness - Extremities Exam Extremities exam: Present: warm, radial pulses palpable and symmetrical. Absent : calf tenderness, cyanotic, pedal edema - Neurological Exam Neurological exam: Present: CN II-XII intact, oriented X3, no focal deficits. Absent: pronater drift, facial droop, speech deficit - Skin Skin exam: Present: dry, intact Internal Medicine: Result - Labs CBC & Chem 7: 06/26/17 05:47 06/26/17 00:16 Labs: Short CBC 06/26/17 06/26/17 Range/Units 00:16 05:47 WBC 6.3 (4.3-11.1) K/mcL Hgb 7.1 L 7.1 L (12.9-16.9) g/dL Hct 20.0 L 20.5 L (37.5-50.1) % Plt Count 117 L (140-400) K/mcL Neutrophils # 3.5 (1.6-8.9) K/mcL BMP 06/26/17 00:16 Sodium 136 Potassium 4.0 Chloride 113 H Carbon Dioxide 22 L BUN 33 H Creatinine 0.75 Glucose 96 Calcium 7.3 L Liver Function 06/26/17 Range/Units 00:16 Total Bilirubin 0.2 L (0.3-1.0) mg/dL AST 6 L (13-39) Units/L ALT 5 L (7-52) Units/L Alkaline Phosphatase 35 (34-104) Units/L Albumin 2.3 L (3.5-5.7) g/dL - ABG Interpretation ABG results: PT/INR, D-dimer PT 11.5 Seconds (9.4-12.1) 06/24/17 12:12 - VTE Documentation of Mechanical Device: Intermittent pneumatic compression device Consult Discharge Plan - Plan Referrals: Hi Curry MD [Primary Care Provider] -
[2017-06-26 12:29] LABS: Hematocrit 18.5 % (37.5-50.1); Hemoglobin 6.4 g/dL (12.9-16.9)
[2017-06-26] MEDS ORDERED: Lidocaine -MPF 1% 5 ML AMPUL INFILT ONE (12:39)
--- NOTE | 2017-06-26 13:14 | Electrocardiograph Report ---
[address] [place], [place] [address] Test Date: 2017-06-24 Pat Name: Yves Krishna Department: 103 Room: 10 Gender: M Benefit Director: TMR : 1960 Requested By: Aldo Moulton Order Number: [id number] Reading MD: Sameer Gabriel Measurements Intervals [place] Rate: 115 P: 79 PA: 137 QRS: 72 QRSD: 132 T: 61 QT: 336 QTc: 404 Interpretive Statements SINUS TACHYCARDIA RIGHT BUNDLE BRANCH BLOCK Electronically Signed On 06-26-2017 9:57:31 EDT by Sameer Gabriel
--- NOTE | 2017-06-26 13:14 | General Surgery Progress Note ---
Date of Encounter: 06/26/17 Time of Encounter: 13:02 Subjective Narrative: General Surgery - Patient feeling much improved; denies abdominal pain. Nursing reports one bloody bowel movement yesterday following transfer to ICU ; none since. H&H 7.1 / 20.5 which is essentially unchanged overnight despite transfusion 3 additional units PRBC. Total transfusion this hospitalization 6 units PRBC Patient is afebrile, pulse 85-99, respirations 16, blood pressure most recently 98/51 (range 98/51-133/71 Lungs: Clear Abdomen: Soft, nontender; no detected intra-abdominal masses. Laboratories: Otherwise notable for leukocytosis 6.3, repeat H&H this morning 6.4 with a hematocrit of 18.5. This was discussed with Dr. Lozada - additional PRBC transfusions have been ordered. Platelet count is notably diminished at 117,000; differential remains normal. Electrolytes are stable. BUN has fallen from 74 on presentation to 33 - this is consistent with clearing of the GI blood. Creatinine has also improved from 1.57 on presentation to 0.75. Estimated GFR has improved from 55 to greater than 60. Serum protein is fallen to 3.6, albumin 2.3 - on presentation serum protein was 4.5; the diminished values are related to hydration effects since admission but the severe depressed protein is concerning. Impression: Anemia, persistent despite transfusion 6 units packed red blood cells. EGD completed yesterday notable for severe diffuse duodenitis which appears to be the source of the patient's GI blood. Colonoscopy has yet to be arranged; but has been deferred until the patient' s H&H, platelets, and severe protein depletion have been stabilized. Objective Vital Signs - Last 8 Hours Temp Pulse Resp BP Pulse Ox 06/26/17 11:55 98.0 F 06/26/17 10:00 99 16 98/51 100 06/26/17 09:00 85 13 110/68 100 06/26/17 08:00 84 13 133/71 99 06/26/17 07:36 98.2 F 06/26/17 07:00 96 20 109/58 100 06/26/17 06:00 89 20 120/56 100 Intake and Output 06/25/17 06/26/17 06/26/17 23:59 07:59 15:59 Intake Total 3650 / 3650 1100 / 1100 700 / 700 Output Total 0 / 0 950 / 950 1425 / 1425 Balance 3650 / 3650 150 / 150 -725 / -725 Intake: IV Fluids 1200 / 1200 1100 / 1100 100 / 100 0.9 % Sodium Chloride 1,000 ML 1000 / 1000 1000 / 1000 @ 100 mls/hr IVC [facility] Rx#: [id number] Protonix 40 MG In 0.9 % Sodium 200 / 200 100 / 100 100 / 100 Chloride (Mini-Bag +) 100 ML @ 20 mls/hr IVC .[facility] Rx#: [id number] Oral 1440 / 1440 600 / 600 Blood Product 1010 / 1010 Rbcs Leuko Poor As-1 Unit 310 / 310 [id number] Rbcs Leuko Poor As-1 Unit 350 / 350 [id number] Rbcs Leuko Poor As-1 Unit 350 / 350 [id number] Output: Urine 0 / 0 950 / 950 575 / 575 Catheter 850 / 850 Other: Meal Dinner Breakfast Percent of Meal Consumed 100% 75% Stool Size Moderate Stool Consistency liquid Stool Color Bright Red Blood Dark Red Blood # Bowel Movements 1 Weight 75.4 kg 78.2 kg Patient Weight 06/26/17 23:59 Weight 78.2 kg - Labs 06/26/17 12:16 06/26/17 00:16 Diabetes panel 06/26/17 Range/Units 00:16 Sodium 136 (136-145) mEq/L Potassium 4.0 (3.5-5.1) mEq/L Chloride 113 H (98-107) mEq/L Carbon Dioxide 22 L (23-29) mEq/L BUN 33 H (6-20) mg/dL Creatinine 0.75 (0.70-1.30) mg/dL Glucose 96 (70-105) mg/dL Calcium 7.3 L (8.6-10.3) mg/dL AST 6 L (13-39) Units/L ALT 5 L (7-52) Units/L Alkaline Phosphatase 35 (34-104) Units/L Albumin 2.3 L (3.5-5.7) g/dL Calcium panel 06/26/17 Range/Units 00:16 Calcium 7.3 L (8.6-10.3) mg/dL Albumin 2.3 L (3.5-5.7) g/dL Pituitary panel 06/26/17 Range/Units 00:16 Sodium 136 (136-145) mEq/L Potassium 4.0 (3.5-5.1) mEq/L Chloride 113 H (98-107) mEq/L Carbon Dioxide 22 L (23-29) mEq/L BUN 33 H (6-20) mg/dL Creatinine 0.75 (0.70-1.30) mg/dL Glucose 96 (70-105) mg/dL Calcium 7.3 L (8.6-10.3) mg/dL Adrenal panel 06/26/17 Range/Units 00:16 Sodium 136 (136-145) mEq/L Potassium 4.0 (3.5-5.1) mEq/L Chloride 113 H (98-107) mEq/L Carbon Dioxide 22 L (23-29) mEq/L BUN 33 H (6-20) mg/dL Creatinine 0.75 (0.70-1.30) mg/dL Glucose 96 (70-105) mg/dL Calcium 7.3 L (8.6-10.3) mg/dL Total Bilirubin 0.2 L (0.3-1.0) mg/dL AST 6 L (13-39) Units/L ALT 5 L (7-52) Units/L Alkaline Phosphatase 35 (34-104) Units/L Albumin 2.3 L (3.5-5.7) g/dL - VTE Documentation of Mechanical Device: Intermittent pneumatic compression device Consult Discharge Plan - Plan Referrals: Hi Curry MD [Primary Care Provider] -
[2017-06-26] MEDS: Sucralfate 1 GM TABLET PO SCH ×3 (14:29→21:27)
[2017-06-26] MEDS ORDERED: Calcium Gluconate 2,000 MG in D5% in Water 100 ML IVPB ONE (18:15)
[2017-06-26] MEDS ORDERED: 0.9 % Sodium Chloride 1,000 ML IVC ONE (18:16)
[2017-06-26] MEDS ORDERED: 0.9 % Sodium Chloride 250 ML ONE (19:37)
[2017-06-26] MEDS: Mirtazapine 15 MG TABLET PO SCH (19:59)
[2017-06-26] MEDS: *HR* FentaNYL (PF) 100 MCG/2 ML VIAL IVP PRN (21:26)
[2017-06-27 00:53] LABS: Hematocrit 22.2 % (37.5-50.1); Hemoglobin 7.8 g/dL (12.9-16.9)
[2017-06-27] MEDS: Pantoprazole 40 MG in 0.9 % Sodium Chloride Mini Bag 100 ML IVC SCH ×5 (02:32→23:53)
[2017-06-27 04:43] LABS: Basophils % 0.3 %; Eosinophils # 0.2 K/mcL (0.0-0.6); Eosinophils % 2.4 %; Hematocrit 22.7 % (37.5-50.1); Immature Granulocytes % 0.4 % (0-4); Lymphocytes # 2.1 K/mcL (0.6-4.6); Mean Corpuscular HGB Conc 35.2 g/dL (31.6-35.5); Mean Corpuscular Hemoglobin 30.4 pg (28.0-33.3); Mean Corpuscular Volume 86.3 fL (83.0-100.0); Mean Platelet Volume 9.4 fL (9.4-12.4); Monocytes # 0.4 K/mcL (0.0-1.3); Monocytes % 6.4 %; Nucleated Red Blood Cells 0.3 /100 WBC (0); Platelet Count 128 K/mcL (140-400); Red Blood Count 2.63 M/mcL (4.19-5.50); Red Cell Distribution Width 15.5 % (11.5-14.5); Segmented Neutrophils % 59.5 %
[2017-06-27 05:09] LABS: Alanine Aminotransferase 11 Units/L (7-52); Albumin 2.4 g/dL (3.5-5.7); Albumin/Globulin Ratio 1.8 (1.1-2.2); Alkaline Phosphatase 40 Units/L (34-104); Aspartate Amino Transferase 10 Units/L (13-39); BUN/Creatinine Ratio 27 (6-26); Bilirubin,Total 0.2 mg/dL (0.3-1.0); Blood Urea Nitrogen 21 mg/dL (6-20); Calcium 7.8 mg/dL (8.6-10.3); Carbon Dioxide 24 mEq/L (23-29); Chloride 111 mEq/L (98-107); Globulin 1.3 g/dL (2.4-3.5); Glucose 98 mg/dL (70-105); Osmolality,Calculated 287 (280-300); Potassium 4.2 mEq/L (3.5-5.1); Sodium 137 mEq/L (136-145); Total Protein 3.7 g/dL (6.4-8.9); eGFR For African Americans > 60 (> 60); eGFR For Non-African Americans > 60 (> 60)
[2017-06-27] MEDS: Nicotine 14 MG PATCH.TD24 TD SCH (08:26)
[2017-06-27] MEDS: Sucralfate 1 GM TABLET PO SCH ×4 (08:26→21:21)
--- NOTE | 2017-06-27 09:14 | Internal Med Progress Note ---
Date of Encounter: 06/27/17 Time of Encounter: 09:00 - Assessment and plan (1) GI bleed Current Visit: Yes Status: Acute Assessment and plan: Has reported history of PUD with frequent NSAID use. Hemoglobin 8.3 on admission. Has required 6 units PRBC EGD done 06/25 showed recent bleeding in duodenal bulb, duodenitis, gastritis. He was transferred to ICU for close monitoring, but EGD showed no acute bleed and patient is hemodynamically stable. Continue Protonix drip Monitor vitals closely Cycle H&H q6H - transfuse as needed. Surgery following ADAT Qualifiers: GI bleed type/associated pathology: melena Qualified Code(s): K92.1 - Melena (2) Schizophrenia, paranoid, chronic Current Visit: Yes Status: Chronic Assessment and plan: Hx of chronic paranoid schizophrenia. Continue pts. medications (3) SHAMIR (acute kidney injury) Current Visit: Yes Status: Acute Assessment and plan: Resolved, likely related to anemia (4) Hypotension Current Visit: Yes Status: Acute Assessment and plan: Secondary to acute blood loss, continue PRBC and rescusitate as needed. Qualifiers: Hypotension type: unspecified hypotension type Qualified Code(s): I95.9 - Hypotension, unspecified (5) Bipolar depression Current Visit: Yes Status: Chronic Assessment and plan: Hx of bipolar depression. Continue pts. medications (6) COPD (chronic obstructive pulmonary disease) Current Visit: Yes Status: Chronic Assessment and plan: Hx of chronic COPD. Stable. Supplemental O2 w/titration and SpO2 monitoring PRN. Qualifiers: COPD type: unspecified COPD Qualified Code(s): J44.9 - Chronic obstructive pulmonary disease, unspecified (7) HLD (hyperlipidemia) Current Visit: Yes Status: Chronic Assessment and plan: Hx of chronic HLD accroding to pt. but he currently does not take statin. Lipid panel in a.m. labs. Consider adding statin if warranted by panel results. Qualifiers: Hyperlipidemia type: pure hypercholesterolemia Qualified Code(s): E78.00 - Pure hypercholesterolemia, unspecified; E78.0 - Pure hypercholesterolemia (8) Arthritis Current Visit: Yes Status: Chronic Assessment and plan: Hx of chronic arthritis. No NSAIDs due to GIB, discussed this with patient. (9) DVT prophylaxis Current Visit: Yes Status: Acute Assessment and plan: Bilateral SCDs on LEs for DVT prophylaxis d/t current report of black stools and drop in Hgb. (10) Hyponatremia Current Visit: Yes Status: Acute Assessment and plan: Resolved (11) Alcohol use Current Visit: Yes Status: Chronic Assessment and plan: States last drink was 3 days prior to admission States never had history of etoh withdrawal - continue [facility] scale and protocol. - Time Spent With Patient Total time spent is greater than 50% in coordination of care (as documented) at patient's floor/unit and/or counseling patient: - Subjective Interval history: No acute events overnight - Constitutional Vitals: Temp Pulse Resp BP Pulse Ox 97.6 F 101 14 116/55 100 06/27/17 07:55 06/27/17 08:00 06/27/17 08:00 06/27/17 08:00 06/27/17 08:00 General appearance: Present: cooperative, A&O X 3, pleasant, no acute distress, answers questions appropriately - Head Head exam: Present: atraumatic, normocephalic - Eye Eye exam: Present: PERRL, conjuntiva pink, sclera anicteric Pupils: Present: PERRL - Neck Neck exam general surgery: Present: supple, trachea midline. Absent: lymphadenopathy - Respiratory Respiratory exam: Present: CTAB. Absent: accessory muscle use, rales, rhonchi, wheezes - Cardiovascular Cardiovascular exam: Present: RRR, +S1, +S2. Absent: diastolic murmur, gallop, rubs, systolic murmur - GI/Abdominal GI/Abdominal exam: Present: normal bowel sounds, soft, no peritoneal signs. Absent: distended, tenderness - Extremities Exam Extremities exam: Present: warm, radial pulses palpable and symmetrical. Absent : calf tenderness, cyanotic, pedal edema - Neurological Exam Neurological exam: Present: CN II-XII intact, oriented X3, no focal deficits. Absent: pronater drift, facial droop, speech deficit - Skin Skin exam: Present: dry, intact Internal Medicine: Result - Labs CBC & Chem 7: 06/27/17 14:50 06/27/17 14:50 Labs: Short CBC 06/26/17 06/27/17 06/27/17 Range/Units 12:16 00:00 04:00 WBC 6.7 (4.3-11.1) K/mcL Hgb 6.4 L 7.8 L 8.0 L (12.9-16.9) g/dL Hct 18.5 L 22.2 L 22.7 L (37.5-50.1) % Plt Count 128 L (140-400) K/mcL Neutrophils # 4.0 (1.6-8.9) K/mcL BMP 06/27/17 04:00 Sodium 137 Potassium 4.2 Chloride 111 H Carbon Dioxide 24 BUN 21 H Creatinine 0.77 Glucose 98 Calcium 7.8 L Liver Function 06/27/17 Range/Units 04:00 Total Bilirubin 0.2 L (0.3-1.0) mg/dL AST 10 L (13-39) Units/L ALT 11 (7-52) Units/L Alkaline Phosphatase 40 (34-104) Units/L Albumin 2.4 L (3.5-5.7) g/dL - ABG Interpretation ABG results: PT/INR, D-dimer PT 11.5 Seconds (9.4-12.1) 06/24/17 12:12 - VTE Documentation of Mechanical Device: Intermittent pneumatic compression device Consult Discharge Plan - Plan Referrals: Hi Curry MD [Primary Care Provider] -
[2017-06-27 10:28] LABS: Hematocrit 21.2 % (37.5-50.1); Hemoglobin 7.4 g/dL (12.9-16.9)
[2017-06-27] MEDS ORDERED: Furosemide 40 MG/4 ML VIAL IVP ONE (13:10)
[2017-06-27] MEDS ORDERED: Calcium Gluconate 2,000 MG in 0.9 % Sodium Chloride 100 ML IVPB PRN (13:45)
[2017-06-27] MEDS ORDERED: Potassium Phosphate 44 MEQ in 0.9 % Sodium Chloride 250 ML IVPB PRN (13:45)
[2017-06-27 15:09] LABS: Basophils % 0.3 %; Eosinophils # 0.2 K/mcL (0.0-0.6); Eosinophils % 2.7 %; Hemoglobin 7.4 g/dL (12.9-16.9); Immature Granulocytes % 0.7 % (0-4); Lymphocytes # 1.8 K/mcL (0.6-4.6); Lymphocytes % 26.2 %; Mean Corpuscular HGB Conc 35.2 g/dL (31.6-35.5); Mean Corpuscular Hemoglobin 30.6 pg (28.0-33.3); Mean Corpuscular Volume 86.8 fL (83.0-100.0); Mean Platelet Volume 9.4 fL (9.4-12.4); Monocytes # 0.4 K/mcL (0.0-1.3); Monocytes % 6.4 %; Neutrophils # 4.3 K/mcL (1.6-8.9); Platelet Count 149 K/mcL (140-400); Red Blood Count 2.42 M/mcL (4.19-5.50); Red Cell Distribution Width 15.3 % (11.5-14.5); Segmented Neutrophils % 63.7 %
[2017-06-27 15:14] LABS: VBG Ionized Calcium 1.22 mmol/L (1.15-1.35)
[2017-06-27 15:29] LABS: BUN/Creatinine Ratio 25 (6-26); Blood Urea Nitrogen 19 mg/dL (6-20); Calcium 7.8 mg/dL (8.6-10.3); Carbon Dioxide 29 mEq/L (23-29); Chloride 108 mEq/L (98-107); Glucose 93 mg/dL (70-105); Magnesium 1.9 mg/dL (1.6-2.6); Osmolality,Calculated 286 (280-300); Phosphorous 3.4 mg/dL (2.7-4.5); Potassium 3.9 mEq/L (3.5-5.1); Sodium 137 mEq/L (136-145); eGFR For African Americans > 60 (> 60); eGFR For Non-African Americans > 60 (> 60)
[2017-06-27] MEDS: Mirtazapine 15 MG TABLET PO SCH (21:20)
[2017-06-27] MEDS: *HR* FentaNYL (PF) 100 MCG/2 ML VIAL IVP PRN (21:27)
[2017-06-27 22:57] LABS: Hematocrit 24.7 % (37.5-50.1); Hemoglobin 8.8 g/dL (12.9-16.9)
[2017-06-28 04:48] LABS: Basophils % 0.3 %; Eosinophils # 0.2 K/mcL (0.0-0.6); Eosinophils % 3.7 %; Hematocrit 23.7 % (37.5-50.1); Hemoglobin 8.4 g/dL (12.9-16.9); Immature Granulocytes % 0.5 % (0-4); Lymphocytes # 1.8 K/mcL (0.6-4.6); Lymphocytes % 29.1 %; Mean Corpuscular HGB Conc 35.4 g/dL (31.6-35.5); Mean Corpuscular Hemoglobin 30.8 pg (28.0-33.3); Mean Corpuscular Volume 86.8 fL (83.0-100.0); Mean Platelet Volume 9.3 fL (9.4-12.4); Monocytes # 0.4 K/mcL (0.0-1.3); Monocytes % 6.5 %; Neutrophils # 3.7 K/mcL (1.6-8.9); Platelet Count 160 K/mcL (140-400); Red Blood Count 2.73 M/mcL (4.19-5.50); Red Cell Distribution Width 14.8 % (11.5-14.5); Segmented Neutrophils % 59.9 %
[2017-06-28] MEDS: Pantoprazole 40 MG in 0.9 % Sodium Chloride Mini Bag 100 ML IVC SCH ×5 (04:52→21:10)
[2017-06-28 05:07] LABS: Alanine Aminotransferase 10 Units/L (7-52); Albumin 2.6 g/dL (3.5-5.7); Albumin/Globulin Ratio 1.9 (1.1-2.2); Alkaline Phosphatase 47 Units/L (34-104); Aspartate Amino Transferase 8 Units/L (13-39); BUN/Creatinine Ratio 16 (6-26); Bilirubin,Total 0.2 mg/dL (0.3-1.0); Blood Urea Nitrogen 15 mg/dL (6-20); Calcium 7.9 mg/dL (8.6-10.3); Carbon Dioxide 27 mEq/L (23-29); Chloride 109 mEq/L (98-107); Globulin 1.4 g/dL (2.4-3.5); Glucose 100 mg/dL (70-105); Osmolality,Calculated 295 (280-300); Potassium 3.7 mEq/L (3.5-5.1); Sodium 142 mEq/L (136-145); eGFR For African Americans > 60 (> 60); eGFR For Non-African Americans > 60 (> 60)
[2017-06-28] MEDS ORDERED: Potassium Citrate 10 MEQ TABLET.ER PO PRN (05:22)
[2017-06-28] MEDS: Sucralfate 1 GM TABLET PO SCH ×4 (07:37→20:32)
--- NOTE | 2017-06-28 08:01 | Internal Med Progress Note ---
Date of Encounter: 06/28/17 Time of Encounter: 08:00 - Assessment and plan (1) GI bleed Current Visit: Yes Status: Acute Assessment and plan: Has reported history of PUD with frequent NSAID use. Hemoglobin 8.3 on admission. Has required 6 units PRBC EGD done 06/25 showed recent bleeding in duodenal bulb, duodenitis, gastritis. He was transferred to ICU for close monitoring, but EGD showed no acute bleed and patient is hemodynamically stable. Continue Protonix drip Monitor vitals closely Cycle H&H q6H - transfuse as needed. Surgery following. 06/28. Patient was transfused one unit of PRBC overnight. Hemoglobin responded appropriately. Plan for colonoscopy per surgery. Platelet count improved Qualifiers: GI bleed type/associated pathology: melena Qualified Code(s): K92.1 - Melena (2) Schizophrenia, paranoid, chronic Current Visit: Yes Status: Chronic Assessment and plan: Hx of chronic paranoid schizophrenia. Continue pts. medications (3) SHAMIR (acute kidney injury) Current Visit: Yes Status: Acute Assessment and plan: Resolved, likely related to anemia (4) Hypotension Current Visit: Yes Status: Acute Assessment and plan: Secondary to acute blood loss, continue PRBC and rescusitate as needed. Qualifiers: Hypotension type: unspecified hypotension type Qualified Code(s): I95.9 - Hypotension, unspecified (5) Bipolar depression Current Visit: Yes Status: Chronic Assessment and plan: Hx of bipolar depression. Continue pts. medications (6) COPD (chronic obstructive pulmonary disease) Current Visit: Yes Status: Chronic Qualifiers: COPD type: unspecified COPD Qualified Code(s): J44.9 - Chronic obstructive pulmonary disease, unspecified (7) HLD (hyperlipidemia) Current Visit: Yes Status: Chronic Qualifiers: Hyperlipidemia type: pure hypercholesterolemia Qualified Code(s): E78.00 - Pure hypercholesterolemia, unspecified; E78.0 - Pure hypercholesterolemia (8) Arthritis Current Visit: Yes Status: Chronic (9) DVT prophylaxis Current Visit: Yes Status: Acute (10) Hyponatremia Current Visit: Yes Status: Acute (11) Alcohol use Current Visit: Yes Status: Chronic - Time Spent With Patient Total time spent is greater than 50% in coordination of care (as documented) at patient's floor/unit and/or counseling patient: - Subjective Interval history: Transfused one unit of pRBC overnight - Constitutional Vitals: Temp Pulse Resp BP Pulse Ox 97.3 F L 90 16 111/70 98 06/28/17 07:46 06/28/17 07:00 06/28/17 07:00 06/28/17 07:00 06/28/17 07:00 General appearance: Present: cooperative, A&O X 3, pleasant, no acute distress, answers questions appropriately - Head Head exam: Present: atraumatic, normocephalic - Eye Eye exam: Present: PERRL, conjuntiva pink, sclera anicteric Pupils: Present: PERRL - Neck Neck exam general surgery: Present: supple, trachea midline. Absent: lymphadenopathy - Respiratory Respiratory exam: Present: CTAB. Absent: accessory muscle use, rales, rhonchi, wheezes - Cardiovascular Cardiovascular exam: Present: RRR, +S1, +S2. Absent: diastolic murmur, gallop, rubs, systolic murmur - GI/Abdominal GI/Abdominal exam: Present: normal bowel sounds, soft, no peritoneal signs. Absent: distended, tenderness - Extremities Exam Extremities exam: Present: warm, radial pulses palpable and symmetrical. Absent : calf tenderness, cyanotic, pedal edema - Neurological Exam Neurological exam: Present: CN II-XII intact, oriented X3, no focal deficits. Absent: pronater drift, facial droop, speech deficit - Skin Skin exam: Present: dry, intact Internal Medicine: Result - Labs CBC & Chem 7: 06/28/17 04:00 06/28/17 04:00 Labs: Short CBC 06/27/17 06/27/17 06/27/17 Range/Units 10:15 14:50 22:33 WBC 6.7 (4.3-11.1) K/mcL Hgb 7.4 L 7.4 L 8.8 L (12.9-16.9) g/dL Hct 21.2 L 21.0 L 24.7 L (37.5-50.1) % Plt Count 149 (140-400) K/mcL Neutrophils # 4.3 (1.6-8.9) K/mcL 06/28/17 Range/Units 04:00 WBC 6.2 (4.3-11.1) K/mcL Hgb 8.4 L (12.9-16.9) g/dL Hct 23.7 L (37.5-50.1) % Plt Count 160 (140-400) K/mcL Neutrophils # 3.7 (1.6-8.9) K/mcL BMP 06/27/17 06/28/17 14:50 04:00 Sodium 137 142 Potassium 3.9 3.7 Chloride 108 H 109 H Carbon Dioxide 29 27 BUN 19 15 Creatinine 0.77 0.91 Glucose 93 100 Calcium 7.8 L 7.9 L Liver Function 06/28/17 Range/Units 04:00 Total Bilirubin 0.2 L (0.3-1.0) mg/dL AST 8 L (13-39) Units/L ALT 10 (7-52) Units/L Alkaline Phosphatase 47 (34-104) Units/L Albumin 2.6 L (3.5-5.7) g/dL - ABG Interpretation ABG results: PT/INR, D-dimer PT 11.5 Seconds (9.4-12.1) 06/24/17 12:12 - VTE Documentation of Mechanical Device: Intermittent pneumatic compression device Consult Discharge Plan - Plan Referrals: Hi Curry MD [Primary Care Provider] -
[2017-06-28] MEDS: Nicotine 14 MG PATCH.TD24 TD SCH (08:35)
[2017-06-28 14:01] LABS: Basophils % 0.4 %; Eosinophils # 0.2 K/mcL (0.0-0.6); Hematocrit 24.9 % (37.5-50.1); Hemoglobin 8.4 g/dL (12.9-16.9); Immature Granulocytes % 0.6 % (0-4); Lymphocytes # 1.2 K/mcL (0.6-4.6); Lymphocytes % 22.9 %; Mean Corpuscular HGB Conc 33.7 g/dL (31.6-35.5); Mean Corpuscular Hemoglobin 29.5 pg (28.0-33.3); Mean Corpuscular Volume 87.4 fL (83.0-100.0); Mean Platelet Volume 9.5 fL (9.4-12.4); Monocytes # 0.3 K/mcL (0.0-1.3); Monocytes % 5.7 %; Neutrophils # 3.4 K/mcL (1.6-8.9); Platelet Count 184 K/mcL (140-400); Red Blood Count 2.85 M/mcL (4.19-5.50); Red Cell Distribution Width 15.1 % (11.5-14.5); Segmented Neutrophils % 66.4 %
[2017-06-28 14:07] LABS: BUN/Creatinine Ratio 13 (6-26); Blood Urea Nitrogen 11 mg/dL (6-20); Calcium 8.1 mg/dL (8.6-10.3); Carbon Dioxide 27 mEq/L (23-29); Chloride 105 mEq/L (98-107); Glucose 181 mg/dL (70-105); Osmolality,Calculated 286 (280-300); Potassium 3.5 mEq/L (3.5-5.1); Sodium 136 mEq/L (136-145); eGFR For African Americans > 60 (> 60); eGFR For Non-African Americans > 60 (> 60)
[2017-06-28 19:20] LABS: VBG Ionized Calcium 1.18 mmol/L (1.15-1.35); VBG PH 7.31 pH Units (7.32-7.42)
[2017-06-28] MEDS: Mirtazapine 15 MG TABLET PO SCH (20:33)
[2017-06-28 20:47] LABS: Magnesium 1.9 mg/dL (1.6-2.6); Phosphorous 4.1 mg/dL (2.7-4.5); Potassium 3.9 mEq/L (3.5-5.1)
[2017-06-28] MEDS: *HR* FentaNYL (PF) 100 MCG/2 ML VIAL IVP PRN (23:03)
[2017-06-29] MEDS: Pantoprazole 40 MG in 0.9 % Sodium Chloride Mini Bag 100 ML IVC SCH ×5 (01:11→20:44)
[2017-06-29 04:33] LABS: Basophils % 0.5 %; Eosinophils # 0.2 K/mcL (0.0-0.6); Eosinophils % 5.8 %; Hematocrit 23.7 % (37.5-50.1); Hemoglobin 7.8 g/dL (12.9-16.9); Lymphocytes # 1.3 K/mcL (0.6-4.6); Lymphocytes % 32.2 %; Mean Corpuscular HGB Conc 32.9 g/dL (31.6-35.5); Mean Corpuscular Hemoglobin 29.2 pg (28.0-33.3); Mean Corpuscular Volume 88.8 fL (83.0-100.0); Mean Platelet Volume 9.3 fL (9.4-12.4); Monocytes # 0.4 K/mcL (0.0-1.3); Monocytes % 9.5 %; Platelet Count 192 K/mcL (140-400); Red Blood Count 2.67 M/mcL (4.19-5.50); Red Cell Distribution Width 15.4 % (11.5-14.5)
[2017-06-29 04:37] LABS: Alanine Aminotransferase 9 Units/L (7-52); Albumin 2.6 g/dL (3.5-5.7); Albumin/Globulin Ratio 1.7 (1.1-2.2); Alkaline Phosphatase 51 Units/L (34-104); Aspartate Amino Transferase 8 Units/L (13-39); BUN/Creatinine Ratio 10 (6-26); Bilirubin,Total 0.1 mg/dL (0.3-1.0); Blood Urea Nitrogen 8 mg/dL (6-20); Calcium 7.8 mg/dL (8.6-10.3); Carbon Dioxide 28 mEq/L (23-29); Chloride 108 mEq/L (98-107); Globulin 1.5 g/dL (2.4-3.5); Glucose 106 mg/dL (70-105); Osmolality,Calculated 285 (280-300); Sodium 138 mEq/L (136-145); Total Protein 4.1 g/dL (6.4-8.9); eGFR For African Americans > 60 (> 60); eGFR For Non-African Americans > 60 (> 60)
[2017-06-29 04:56] LABS: Magnesium 1.8 mg/dL (1.6-2.6); Phosphorous 4.1 mg/dL (2.7-4.5)
[2017-06-29 07:30] LABS: Ova & Parasite Stain NEGATIVE (Negative)
[2017-06-29] MEDS: Nicotine 14 MG PATCH.TD24 TD SCH (07:46)
[2017-06-29] MEDS: Sucralfate 1 GM TABLET PO SCH ×4 (07:47→20:44)
--- NOTE | 2017-06-29 07:50 | Internal Med Progress Note ---
Date of Encounter: 06/29/17 Time of Encounter: 07:45 - Assessment and plan (1) GI bleed Current Visit: Yes Status: Acute Assessment and plan: Has reported history of PUD with frequent NSAID use. Hemoglobin 8.3 on admission. Has required 6 units PRBC EGD done 06/25 showed recent bleeding in duodenal bulb, duodenitis, gastritis. He was transferred to ICU for close monitoring, but EGD showed no acute bleed and patient is hemodynamically stable. Continue Protonix drip Monitor vitals closely Cycle H&H q6H - transfuse as needed. Surgery following. 06/28. Patient was transfused one unit of PRBC overnight. Hemoglobin responded appropriately. Plan for colonoscopy per surgery. Platelet count improved 06/29. Stable patient is awaiting colonoscopy. will discuss with Dr Matos regarding plans for colonoscopy Qualifiers: GI bleed type/associated pathology: melena Qualified Code(s): K92.1 - Melena (2) Schizophrenia, paranoid, chronic Current Visit: Yes Status: Chronic Assessment and plan: Hx of chronic paranoid schizophrenia. Continue pts. medications (3) SHAMIR (acute kidney injury) Current Visit: Yes Status: Acute Assessment and plan: Resolved, likely related to anemia (4) Hypotension Current Visit: Yes Status: Acute Assessment and plan: Secondary to acute blood loss, continue PRBC and rescusitate as needed. Qualifiers: Hypotension type: unspecified hypotension type Qualified Code(s): I95.9 - Hypotension, unspecified (5) Bipolar depression Current Visit: Yes Status: Chronic Assessment and plan: Hx of bipolar depression. Continue pts. medications (6) COPD (chronic obstructive pulmonary disease) Current Visit: Yes Status: Chronic Assessment and plan: Hx of chronic COPD. Stable. Supplemental O2 w/titration and SpO2 monitoring PRN. Qualifiers: COPD type: unspecified COPD Qualified Code(s): J44.9 - Chronic obstructive pulmonary disease, unspecified (7) Arthritis Current Visit: Yes Status: Chronic Assessment and plan: Hx of chronic arthritis. No NSAIDs due to GIB, discussed this with patient. (8) DVT prophylaxis Current Visit: Yes Status: Acute Assessment and plan: Bilateral SCDs on LEs for DVT prophylaxis d/t current report of black stools and drop in Hgb. (9) Hyponatremia Current Visit: Yes Status: Acute Assessment and plan: Resolved (10) Alcohol use Current Visit: Yes Status: Chronic Assessment and plan: States last drink was 3 days prior to admission States never had history of etoh withdrawal - continue CIWA scale and protocol. - Time Spent With Patient Total time spent is greater than 50% in coordination of care (as documented) at patient's floor/unit and/or counseling patient: - Subjective Interval history: No acute events overnight - Constitutional Vitals: Temp Pulse Resp BP Pulse Ox 98.2 F 70 14 94/70 100 06/29/17 05:00 06/29/17 06:00 06/29/17 06:00 06/29/17 06:00 06/29/17 06:00 General appearance: Present: cooperative, A&O X 3, pleasant, no acute distress, answers questions appropriately - Head Head exam: Present: atraumatic, normocephalic - Eye Eye exam: Present: PERRL, conjuntiva pink, sclera anicteric Pupils: Present: PERRL - Neck Neck exam general surgery: Present: supple, trachea midline. Absent: lymphadenopathy - Respiratory Respiratory exam: Present: CTAB. Absent: accessory muscle use, rales, rhonchi, wheezes - Cardiovascular Cardiovascular exam: Present: RRR, +S1, +S2. Absent: diastolic murmur, gallop, rubs, systolic murmur - GI/Abdominal GI/Abdominal exam: Present: normal bowel sounds, soft, no peritoneal signs. Absent: distended, tenderness - Extremities Exam Extremities exam: Present: warm, radial pulses palpable and symmetrical. Absent : calf tenderness, cyanotic, pedal edema - Neurological Exam Neurological exam: Present: CN II-XII intact, oriented X3, no focal deficits. Absent: pronater drift, facial droop, speech deficit - Skin Skin exam: Present: dry, intact Internal Medicine: Result - Labs CBC & Chem 7: 06/29/17 04:00 06/29/17 04:00 Labs: Short CBC 06/28/17 06/29/17 Range/Units 13:30 04:00 WBC 5.1 4.0 L (4.3-11.1) K/mcL Hgb 8.4 L 7.8 L (12.9-16.9) g/dL Hct 24.9 L 23.7 L (37.5-50.1) % Plt Count 184 192 (140-400) K/mcL Neutrophils # 3.4 2.0 (1.6-8.9) K/mcL BMP 06/28/17 06/28/17 06/29/17 13:30 19:00 04:00 Sodium 136 138 Potassium 3.5 3.9 4.0 Chloride 105 108 H Carbon Dioxide 27 28 BUN 11 8 Creatinine 0.86 0.82 Glucose 181 H 106 H Calcium 8.1 L 7.8 L Liver Function 06/29/17 Range/Units 04:00 Total Bilirubin 0.1 L (0.3-1.0) mg/dL AST 8 L (13-39) Units/L ALT 9 (7-52) Units/L Alkaline Phosphatase 51 (34-104) Units/L Albumin 2.6 L (3.5-5.7) g/dL - ABG Interpretation ABG results: PT/INR, D-dimer PT 11.5 Seconds (9.4-12.1) 06/24/17 12:12 - VTE Documentation of Mechanical Device: Intermittent pneumatic compression device Consult Discharge Plan - Plan Referrals: Hi Curry MD [Primary Care Provider] -
[2017-06-29 13:43] LABS: Basophils % 0.4 %; Eosinophils # 0.3 K/mcL (0.0-0.6); Eosinophils % 5.3 %; Hematocrit 24.6 % (37.5-50.1); Hemoglobin 8.3 g/dL (12.9-16.9); Immature Granulocytes % 0.9 % (0-4); Lymphocytes % 20.7 %; Mean Corpuscular HGB Conc 33.7 g/dL (31.6-35.5); Mean Corpuscular Hemoglobin 30.1 pg (28.0-33.3); Mean Corpuscular Volume 89.1 fL (83.0-100.0); Mean Platelet Volume 9.2 fL (9.4-12.4); Monocytes # 0.4 K/mcL (0.0-1.3); Monocytes % 8.5 %; Platelet Count 196 K/mcL (140-400); Red Blood Count 2.76 M/mcL (4.19-5.50); Red Cell Distribution Width 15.4 % (11.5-14.5); Segmented Neutrophils % 64.2 %
[2017-06-29] MEDS: Acetaminophen 325 MG TABLET PO PRN (14:11)
[2017-06-29 14:37] LABS: BUN/Creatinine Ratio 13 (6-26); Blood Urea Nitrogen 11 mg/dL (6-20); Calcium 7.9 mg/dL (8.6-10.3); Carbon Dioxide 27 mEq/L (23-29); Chloride 109 mEq/L (98-107); Glucose 133 mg/dL (70-105); Osmolality,Calculated 291 (280-300); Potassium 4.3 mEq/L (3.5-5.1); Sodium 140 mEq/L (136-145); eGFR For African Americans > 60 (> 60); eGFR For Non-African Americans > 60 (> 60)
[2017-06-29] MEDS: Mirtazapine 15 MG TABLET PO SCH (20:43)
[2017-06-30] MEDS: Pantoprazole 40 MG in 0.9 % Sodium Chloride Mini Bag 100 ML IVC SCH ×2 (04:09→13:00)
[2017-06-30] MEDS: Nicotine 14 MG PATCH.TD24 TD SCH (09:34)
[2017-06-30] MEDS: Sucralfate 1 GM TABLET PO SCH ×4 (09:34→20:11)
[2017-06-30] MEDS ORDERED: *HR* LORazepam 1 MG TABLET PO PRN (10:05)
--- NOTE | 2017-06-30 14:01 | Internal Med Progress Note ---
Date of Encounter: 06/30/17 Time of Encounter: 10:00 - Assessment and plan (1) GI bleed Current Visit: Yes Status: Acute Assessment and plan: Has reported history of PUD with frequent NSAID use Recieved total 10 U PRBC so far stabel Hb @ 8.3 now EGD done 06/25 showed grade 1 esophageal varices switched to PO PPI will start him on carafate too Qualifiers: GI bleed type/associated pathology: melena Qualified Code(s): K92.1 - Melena (2) Acute blood loss anemia Current Visit: Yes Status: Acute Assessment and plan: s/p 10 U PRBC Hb stable @ 8.3 now cont PPI..switched to PO added Carafate Medically stable to transfer to [facility] (3) Schizophrenia, paranoid, chronic Current Visit: Yes Status: Chronic Assessment and plan: Hx of chronic paranoid schizophrenia Continue home medications (4) SHAMIR (acute kidney injury) Current Visit: Yes Status: Acute Assessment and plan: Resolved, likely related to dehydration (5) Hypotension Current Visit: Yes Status: Acute Assessment and plan: Secondary to acute blood loss, continue PRBC and rescusitate as needed Improved Qualifiers: Hypotension type: unspecified hypotension type Qualified Code(s): I95.9 - Hypotension, unspecified (6) Bipolar depression Current Visit: Yes Status: Chronic Assessment and plan: Hx of bipolar depression. Continue pts. medications (7) COPD (chronic obstructive pulmonary disease) Current Visit: Yes Status: Chronic Assessment and plan: Hx of chronic COPD Stable Not in exacerbation Qualifiers: COPD type: unspecified COPD Qualified Code(s): J44.9 - Chronic obstructive pulmonary disease, unspecified (8) Arthritis Current Visit: Yes Status: Chronic Assessment and plan: Hx of chronic arthritis. No NSAIDs due to GIB, discussed this with patient. (9) DVT prophylaxis Current Visit: Yes Status: Acute Assessment and plan: Bilateral SCDs on LEs for DVT prophylaxis d/t current report of black stools and drop in Hgb. (10) Hyponatremia Current Visit: Yes Status: Acute Assessment and plan: Resolved (11) Alcohol use Current Visit: Yes Status: Chronic Assessment and plan: States last drink was 3 days prior to admission States never had history of etoh withdrawal No DT's withdrawal symptoms Switched to Ativan PRN (12) Homeless Current Visit: Yes Status: Acute Assessment and plan: Possible d/c home in AM pt does sound like homeless situation SW consulted to help the pt regarding this - Time Spent With Patient Total time spent is greater than 50% in coordination of care (as documented) at patient's floor/unit and/or counseling patient: - Subjective Interval history: Mr. Krishna is a 56 year old male with PMH of arthritis, COPD, HLD, bipolar depression, schizophrenia, and alcohol use presents from the ED w/CC of black loose stools for the past three days. Pt. reported hx of gastric ulcers, alcohol use, and takes 1,000 mg of naproxen daily for pain. Pt. also reported that he smokes 1 PPD. Pt was admitted in the hospital and started him CIWA protocol, and recieved blood transfusions, as well as pt was evaluated by surgery for his GI bleed. He did go for EGD which showed grade 1 esophageal varices and pt was started on protonix gtt and transferred to ICU. Now pt is tolerating PO intake well, no more blood in stool or melena. His Hb stable @ 8.3 Pt denied any CP / SOB. - Constitutional Vitals: Temp Pulse Resp BP Pulse Ox 98.1 F 75 16 122/74 98 06/30/17 11:43 06/30/17 11:21 06/30/17 11:00 06/30/17 11:00 06/30/17 11:00 General appearance: Present: cooperative, A&O X 3, pleasant, no acute distress, answers questions appropriately - Head Head exam: Present: atraumatic, normal inspection - Neck Neck exam general surgery: Present: supple - Respiratory Respiratory exam: Present: decreased breath sounds. Absent: rales, respiratory distress, rhonchi, wheezes - Cardiovascular Cardiovascular exam: Present: RRR, +S1, +S2. Absent: tachycardia - GI/Abdominal GI/Abdominal exam: Present: normal bowel sounds, soft. Absent: rebound, rigid, tenderness - Extremities Exam Extremities exam: Absent: calf tenderness, pedal edema, tenderness - Back Exam Back exam: Absent: CVA tenderness (L), CVA tenderness (R) - Neurological Exam Neurological exam: Present: alert, oriented X3 - Psychiatric Psychiatric exam: Present: normal affect, normal mood Internal Medicine: Result - Labs CBC & Chem 7: 06/29/17 13:33 06/29/17 13:33 Labs: BMP 06/29/17 13:33 Sodium 140 Potassium 4.3 Chloride 109 H Carbon Dioxide 27 BUN 11 Creatinine 0.87 Glucose 133 H Calcium 7.9 L - ABG Interpretation ABG results: PT/INR, D-dimer PT 11.5 Seconds (9.4-12.1) 06/24/17 12:12 - VTE Documentation of Mechanical Device: Intermittent pneumatic compression device Consult Discharge Plan - Plan Referrals: Hi Curry MD [Primary Care Provider] -
[2017-06-30] MEDS: Mirtazapine 15 MG TABLET PO SCH (20:11)
[2017-07-01 07:20] LABS: Alanine Aminotransferase 8 Units/L (7-52); Albumin/Globulin Ratio 1.6 (1.1-2.2); Alkaline Phosphatase 84 Units/L (34-104); Aspartate Amino Transferase 9 Units/L (13-39); BUN/Creatinine Ratio 16 (6-26); Bilirubin,Total 0.1 mg/dL (0.3-1.0); Blood Urea Nitrogen 13 mg/dL (6-20); Calcium 8.6 mg/dL (8.6-10.3); Carbon Dioxide 29 mEq/L (23-29); Chloride 105 mEq/L (98-107); Globulin 1.9 g/dL (2.4-3.5); Glucose 108 mg/dL (70-105); Magnesium 1.9 mg/dL (1.6-2.6); Osmolality,Calculated 285 (280-300); Potassium 4.2 mEq/L (3.5-5.1); Sodium 137 mEq/L (136-145); Total Protein 4.9 g/dL (6.4-8.9); eGFR For African Americans > 60 (> 60); eGFR For Non-African Americans > 60 (> 60)
[2017-07-01 07:33] VITALS: BP 112/68
[2017-07-01 08:08] LABS: Basophils % 0.6 %; Eosinophils # 0.2 K/mcL (0.0-0.6); Eosinophils % 4.9 %; Hematocrit 23.8 % (37.5-50.1); Lymphocytes # 1.4 K/mcL (0.6-4.6); Mean Corpuscular HGB Conc 33.6 g/dL (31.6-35.5); Mean Corpuscular Hemoglobin 30.3 pg (28.0-33.3); Mean Corpuscular Volume 90.2 fL (83.0-100.0); Mean Platelet Volume 9.1 fL (9.4-12.4); Monocytes # 0.5 K/mcL (0.0-1.3); Monocytes % 10.3 %; Neutrophils # 2.7 K/mcL (1.6-8.9); Platelet Count 221 K/mcL (140-400); Red Blood Count 2.64 M/mcL (4.19-5.50); Red Cell Distribution Width 14.9 % (11.5-14.5); Segmented Neutrophils % 55.2 %
[2017-07-01] MEDS: Sucralfate 1 GM TABLET PO SCH (08:17)
[2017-07-01] MEDS: Nicotine 14 MG PATCH.TD24 TD SCH (08:18)
[2017-07-01] MEDS: Acetaminophen 325 MG TABLET PO PRN (10:09)
--- NOTE | 2017-07-01 10:21 | Discharge Summary ---
- NOTES TO OUTPATIENT PROVIDER Notes to Outpatient Provider: f/u with Surgery Dr. Matos in one week. f/u with PCP in one week. Please stop drinking alcohol and smoking tobacco Date of Encounter: 07/01/17 Time of Encounter: 10:18 - Discharge Diagnosis (1) GI bleed Priority: Primary Status: Acute Qualifiers: GI bleed type/associated pathology: melena Qualified Code(s): K92.1 - Melena (2) Acute blood loss anemia Priority: Primary Status: Acute (3) Schizophrenia, paranoid, chronic Priority: Secondary Status: Chronic (4) SHAMIR (acute kidney injury) Priority: Secondary Status: Acute (5) Hypotension Priority: Secondary Status: Acute Qualifiers: Hypotension type: unspecified hypotension type Qualified Code(s): I95.9 - Hypotension, unspecified (6) Bipolar depression Priority: Secondary Status: Chronic (7) COPD (chronic obstructive pulmonary disease) Priority: Secondary Status: Chronic Qualifiers: COPD type: unspecified COPD Qualified Code(s): J44.9 - Chronic obstructive pulmonary disease, unspecified (8) Arthritis Priority: Secondary Status: Chronic (9) DVT prophylaxis Priority: Secondary Status: Acute (10) Hyponatremia Priority: Secondary Status: Acute (11) Alcohol use Priority: Secondary Status: Chronic (12) Homeless Priority: Secondary Status: Acute Hospital course: Mr. Krishna is a 56 year old male with PMH of arthritis, COPD, HLD, bipolar depression, schizophrenia, and alcohol use presents from the ED w/CC of black loose stools for the past three days. Pt. reported hx of gastric ulcers, alcohol use, and takes 1,000 mg of naproxen daily for pain. Pt. also reported that he smokes 1 PPD. Pt was admitted in the hospital and started him CIWA protocol, and recieved blood transfusions, as well as pt was evaluated by surgery for his GI bleed. He did go for EGD which showed grade 1 esophageal varices and pt was started on protonix gtt and transferred to ICU. Pt started tolerating PO intake well, eventually he was transferred to tele. He denied any more blood in stool or melena. His Hb stable @ 8.0. He would like to go home. He does have homeless situation. Our SW offered him [facility] information. However pt stated he is going to stay with his friend. - Time Spent with Patient Total time spent providing and/or coordinating discharge services: - Discharge Medications Prescriptions: Nicotine Patch [Nicoderm] 14 mg TD DAILY #30 patch.td24 Omeprazole [PriLOSEC] 20 mg PO BIDAC #60 capsule. Sucralfate [Carafate] 1 gm PO QIDAC #120 tablet Home Medications: Cyclobenzaprine [Flexeril] 10 mg PO BID PRN 01/25/17 [History] Benztropine [Cogentin] 1 mg PO BID 14 Days #60 tablet 01/30/17 [Rx] Haloperidol [Haldol] 10 mg PO BID #60 tablet 01/30/17 [Rx] Mirtazapine [Remeron] 15 mg PO HS #30 tablet 01/30/17 [Rx] Quetiapine Fumarate [Seroquel] 200 mg PO HS #30 tablet 01/30/17 [Rx] Nicotine Patch [Nicoderm] 14 mg TD DAILY #30 patch.td24 07/01/17 [Rx] Omeprazole [PriLOSEC] 20 mg PO BIDAC #60 capsule. 07/01/17 [Rx] Sucralfate [Carafate] 1 gm PO QIDAC #120 tablet 07/01/17 [Rx] Allergies/Adverse Reactions: 3 Allergy/AdvReac Type Severity Reaction Status Date / Time No Known Allergies Allergy Verified 01/25/17 10:59 Date of admission: 06/24/17 21:33 Primary care physician: Hi Curry MD Consults: 06/25/17 09:02 Consult to Surgery [CONS] Routine Consulting Provider: Augusto Matos Reason for Consult: GIB Call Completed: Yes 06/26/17 13:07 Consult to Invasive Line Access Team [CONS] Routine Reason for Consult: power infusions Line Type: EPIV - Constitutional Vitals: Temp Pulse Resp BP Pulse Ox 97.9 F 87 16 112/68 99 07/01/17 07:31 07/01/17 07:31 07/01/17 07:31 07/01/17 07:31 07/01/17 07:31 General appearance: Present: cooperative, A&O X 3, pleasant, no acute distress, answers questions appropriately - Head Head exam: Present: atraumatic, normal inspection - Neck Neck exam general surgery: Present: supple - Respiratory Respiratory exam: Absent: respiratory distress, rhonchi, wheezes - Cardiovascular Cardiovascular exam: Present: RRR, +S1, +S2. Absent: tachycardia - GI/Abdominal GI/Abdominal exam: Present: normal bowel sounds, soft. Absent: rebound, rigid, tenderness - Extremities Exam Extremities exam: Absent: calf tenderness, pedal edema, tenderness - Back Exam Back exam: Absent: CVA tenderness (L), CVA tenderness (R) - Neurological Exam Neurological exam: Present: alert, oriented X3 - Psychiatric Psychiatric exam: Present: anxious - Patient Status Disposition: Home, Self-Care Condition: Good Overall status at discharge: patient is back to baseline - Discharge Instructions Follow Up With: Hi Curry MD [Primary Care Provider] - Augusto Matos MD [Non-Partnered Physician] - - Diet and Activity Activity: increase activity as tolerated Diet: low salt diet - VTE Documentation of Mechanical Device: Intermittent pneumatic compression device
== END 2017-07-01 11:11 | disposition home or self-care (01) | DRG 378 ==
LOC: EMEROO 12:07 → 3ANU 12:07 → ICNU 06-25 11:12 → 2ANU 06-30 12:53
PROVIDERS: ADMIT Hospitalist; ATTEND Hospitalist

== ENCOUNTER 2020-02-10 17:03 | Observation (INO) ==
[2020-02-10 18:28] LABS: Basophils % 0.3 %; Eosinophils # 0.2 K/mcL (0.0-0.6); Hematocrit 32.5 % (37.5-50.1); Hemoglobin 10.5 g/dL (12.9-16.9); Immature Granulocytes % 0.2 % (0-4); Mean Corpuscular HGB Conc 32.3 g/dL (31.6-35.5); Mean Corpuscular Hemoglobin 29.7 pg (28.0-33.3); Mean Corpuscular Volume 92.1 fL (83.0-100.0); Mean Platelet Volume 8.6 fL (9.4-12.4); Monocytes # 0.6 K/mcL (0.0-1.3); Neutrophils # 4.5 K/mcL (1.6-8.9); Platelet Count 208 K/mcL (140-400); Red Blood Count 3.53 M/mcL (4.19-5.50); Red Cell Distribution Width 13.9 % (11.5-14.5); Segmented Neutrophils % 71.5 %; White Blood Count 6.3 K/mcL (4.3-11.1)
[2020-02-10 18:46] LABS: Acetaminophen < 10 mcg/mL (10-20); Alanine Aminotransferase 35 Units/L (7-52); Albumin 3.7 g/dL (3.5-5.7); Albumin/Globulin Ratio 1.4 (1.1-2.2); Alkaline Phosphatase 116 Units/L (34-104); Aspartate Amino Transferase 28 Units/L (13-39); BUN/Creatinine Ratio 22 (6-26); Bilirubin,Total 0.2 mg/dL (0.3-1.0); Blood Urea Nitrogen 15 mg/dL (8-23); Calcium 8.8 mg/dL (8.6-10.3); Carbon Dioxide 22 mEq/L (23-29); Chloride 103 mEq/L (98-107); Globulin 2.7 g/dL (2.4-3.5); Glucose 100 mg/dL (70-105); Osmolality,Calculated 275 (280-300); Potassium 3.9 mEq/L (3.5-5.1); Sodium 132 mEq/L (136-145); Total Protein 6.4 g/dL (6.4-8.9); Troponin I < 0.03 ng/mL (< 0.04); eGFR For African Americans > 60 (> 60); eGFR For Non-African Americans > 60 (> 60)
[2020-02-10 19:04] LABS: Bilirubin,Urine Negative (Negative); Blood,Urine Negative (Negative); Clarity,Urine Clear (Clear); Color,Urine Light-Yellow (Yellow); Glucose,Urine (UA) Normal (Normal); Ketones,Urine Negative (Negative); Leukocyte Esterase,Urine Negative (Negative); Nitrite,Urine Negative (Negative); Protein,Urine Negative (Neg-Trace); Specific Gravity,Urine 1.017 (1.010-1.025); Urobilinogen,Urine Normal (Normal)
[2020-02-10] MEDS ORDERED: cefTRIAXone 1,000 MG in 0.9 % Sodium Chloride Mini Bag 100 ML IVPB ONE (19:46)
[2020-02-10] MEDS ORDERED: Naloxone 0.4 MG/ML INJ IVP PRN (19:59)
[2020-02-10] MEDS ORDERED: cefTRIAXone 1,000 MG in Water for inj. (sterile) 10 ML IVP ONE (20:00)
[2020-02-10] MEDS ORDERED: Water for inj. (sterile) 10 ML ONE (20:19)
[2020-02-11] MEDS: Famotidine 20 MG TABLET PO SCH ×2 (00:15→22:10)
[2020-02-11] MEDS: Ibuprofen 600 MG TABLET PO PRN (00:15)
[2020-02-11] MEDS: *HR* Enoxaparin 40 MG/0.4 ML SYRINGE SQ SCH (05:57)
[2020-02-11 09:36] LABS: Basophils % 0.3 %; Eosinophils # 0.1 K/mcL (0.0-0.6); Eosinophils % 1.8 %; Hematocrit 32.2 % (37.5-50.1); Hemoglobin 10.4 g/dL (12.9-16.9); Immature Granulocytes % 0.3 % (0-4); Lymphocytes # 0.8 K/mcL (0.6-4.6); Lymphocytes % 11.7 %; Mean Corpuscular HGB Conc 32.3 g/dL (31.6-35.5); Mean Corpuscular Hemoglobin 29.5 pg (28.0-33.3); Mean Corpuscular Volume 91.2 fL (83.0-100.0); Mean Platelet Volume 8.7 fL (9.4-12.4); Monocytes # 0.7 K/mcL (0.0-1.3); Monocytes % 10.8 %; Platelet Count 171 K/mcL (140-400); Red Blood Count 3.53 M/mcL (4.19-5.50); Red Cell Distribution Width 13.9 % (11.5-14.5); Segmented Neutrophils % 75.1 %; White Blood Count 6.6 K/mcL (4.3-11.1)
[2020-02-11 09:56] LABS: Alanine Aminotransferase 30 Units/L (7-52); Albumin 3.6 g/dL (3.5-5.7); Albumin/Globulin Ratio 1.4 (1.1-2.2); Alkaline Phosphatase 113 Units/L (34-104); Aspartate Amino Transferase 23 Units/L (13-39); BUN/Creatinine Ratio 19 (6-26); Bilirubin,Total 0.3 mg/dL (0.3-1.0); Blood Urea Nitrogen 16 mg/dL (8-23); Calcium 8.7 mg/dL (8.6-10.3); Carbon Dioxide 24 mEq/L (23-29); Chloride 100 mEq/L (98-107); Globulin 2.5 g/dL (2.4-3.5); Glucose 105 mg/dL (70-105); Magnesium 1.9 mg/dL (1.6-2.6); Osmolality,Calculated 272 (280-300); Phosphorous 3.9 mg/dL (2.7-4.5); Potassium 4.5 mEq/L (3.5-5.1); Sodium 130 mEq/L (136-145); Total Protein 6.1 g/dL (6.4-8.9); eGFR For African Americans > 60 (> 60); eGFR For Non-African Americans > 60 (> 60)
[2020-02-11] MEDS: Nicotine 21 MG PATCH.TD24 TD SCH (10:19)
[2020-02-11] MEDS: cefTRIAXone 1,000 MG in Water for inj. (sterile) 10 ML IVP SCH (10:19)
[2020-02-11] MEDS: Sucralfate 1 GM TABLET PO SCH ×2 (10:20→18:16)
[2020-02-11] MEDS: Multivit/Ca/Min/Fe/FA 1 TAB TABLET PO SCH (10:20)
[2020-02-11 11:44] LABS: Amphetamine Screen,Urine Negative ng/mL (Cutoff=1000); Barbiturate Screen,Urine Negative ng/mL (Cutoff=200); Benzodiazepines Screen,Urine Negative ng/mL (Cutoff=200); Cannabinoid Screen,Urine Negative ng/mL (Cutoff = 50); Cocaine Screen,Urine Negative ng/mL (Cutoff= 300); Opiate Screen,Urine Negative ng/mL (Cutoff=300); Phencyclidine Screen,Urine Negative ng/mL (Cutoff=25)
[2020-02-11 13:10] LABS: C-Reactive Protein 9 mg/L (Less than 10)
[2020-02-11] MEDS ORDERED: Lidocaine 1% 20 ML MDV ONE (13:59)
[2020-02-11] MEDS ORDERED: *HR* LORazepam 2 MG/ML VIAL IVP PRN ×3 (22:57)
[2020-02-12] MEDS: Ibuprofen 600 MG TABLET PO PRN (02:53)
[2020-02-12] MEDS: *HR* Enoxaparin 40 MG/0.4 ML SYRINGE SQ SCH (05:24)
[2020-02-12] MEDS: cefTRIAXone 1,000 MG in Water for inj. (sterile) 10 ML IVP SCH (08:16)
[2020-02-12] MEDS: Sucralfate 1 GM TABLET PO SCH (08:16)
[2020-02-12] MEDS: Multivit/Ca/Min/Fe/FA 1 TAB TABLET PO SCH (08:16)
[2020-02-12] MEDS: Nicotine 21 MG PATCH.TD24 TD SCH (08:16)
[2020-02-12 10:31] VITALS: BP 122/60
== END 2020-02-12 14:15 ==
LOC: EMEROOARM 17:03 → 3BNU 17:03 → SUATTDRO 20:08 → 3BNU 20:55
PROVIDERS: ADMIT Internal Medicine; ATTEND Internal Medicine

== ENCOUNTER 2020-02-29 21:09 | Inpatient (IN) ==
[2020-02-29] MEDS ORDERED: Piperacillin/Tazobactam 3.375 GM in 0.9 % Sodium Chloride Mini Bag 100 ML IVPB ONE (21:39)
[2020-02-29 22:05] LABS: Basophils % 0.6 %; Eosinophils # 0.1 K/mcL (0.0-0.6); Hematocrit 33.8 % (37.5-50.1); Hemoglobin 11.1 g/dL (12.9-16.9); Immature Granulocytes % 0.2 % (0-4); Lymphocytes # 1.2 K/mcL (0.6-4.6); Lymphocytes % 25.1 %; Mean Corpuscular HGB Conc 32.8 g/dL (31.6-35.5); Mean Corpuscular Hemoglobin 28.8 pg (28.0-33.3); Mean Corpuscular Volume 87.8 fL (83.0-100.0); Mean Platelet Volume 8.8 fL (9.4-12.4); Monocytes # 0.5 K/mcL (0.0-1.3); Monocytes % 9.7 %; Neutrophils # 3.1 K/mcL (1.6-8.9); Platelet Count 237 K/mcL (140-400); Red Blood Count 3.85 M/mcL (4.19-5.50); Red Cell Distribution Width 13.4 % (11.5-14.5); Segmented Neutrophils % 62.4 %
[2020-02-29 22:11] LABS: INR 1.1; Prothrombin Time 12.2 Seconds (9.4-12.1)
[2020-02-29 22:14] LABS: Activated Partial Thrombo Time 35.2 Seconds (26.0-36.0)
[2020-02-29 22:24] LABS: BUN/Creatinine Ratio 26 (6-26); Blood Urea Nitrogen 20 mg/dL (8-23); C-Reactive Protein < 5 mg/L (Less than 10); Calcium 9.1 mg/dL (8.6-10.3); Carbon Dioxide 24 mEq/L (23-29); Chloride 99 mEq/L (98-107); Glucose 107 mg/dL (70-105); Osmolality,Calculated 271 (280-300); Potassium 4.1 mEq/L (3.5-5.1); Sodium 129 mEq/L (136-145); eGFR For African Americans > 60 (> 60); eGFR For Non-African Americans > 60 (> 60)
[2020-02-29] MEDS ORDERED: 0.9 % Sodium Chloride 1,000 ML IVC SCH (23:45)
[2020-02-29] MEDS ORDERED: Naloxone 0.4 MG/ML INJ IVP PRN (23:48)
[2020-02-29] MEDS ORDERED: Ondansetron 4 MG/2 ML VIAL IVP PRN (23:48)
[2020-02-29 23:54] LABS: Amphetamine Screen,Urine Negative ng/mL (Cutoff=1000); Barbiturate Screen,Urine Negative ng/mL (Cutoff=200); Benzodiazepines Screen,Urine Negative ng/mL (Cutoff=200); Cannabinoid Screen,Urine Negative ng/mL (Cutoff = 50); Cocaine Screen,Urine Negative ng/mL (Cutoff= 300); Opiate Screen,Urine Negative ng/mL (Cutoff=300); Phencyclidine Screen,Urine Negative ng/mL (Cutoff=25)
[2020-03-01 01:18] LABS: Hematocrit 36.4 % (37.5-50.1); Hemoglobin 11.6 g/dL (12.9-16.9); Mean Corpuscular HGB Conc 31.9 g/dL (31.6-35.5); Mean Corpuscular Hemoglobin 28.6 pg (28.0-33.3); Mean Corpuscular Volume 89.7 fL (83.0-100.0); Mean Platelet Volume 8.7 fL (9.4-12.4); Platelet Count 223 K/mcL (140-400); Red Blood Count 4.06 M/mcL (4.19-5.50); Red Cell Distribution Width 13.2 % (11.5-14.5); White Blood Count 4.5 K/mcL (4.3-11.1)
[2020-03-01 01:40] LABS: BUN/Creatinine Ratio 20 (6-26); Blood Urea Nitrogen 18 mg/dL (8-23); Calcium 9.4 mg/dL (8.6-10.3); Carbon Dioxide 26 mEq/L (23-29); Chloride 99 mEq/L (98-107); Chol/HDL Ratio 2.2 (0-4.9); Cholesterol 157 mg/dL (< 200); Glucose 97 mg/dL (70-105); HDL Cholesterol 71 mg/dL (40-59); LDL Cholesterol,Calculated 74 mg/dL (< 100); Magnesium 2.1 mg/dL (1.6-2.6); Osmolality,Calculated 272 (280-300); Potassium 4.2 mEq/L (3.5-5.1); Sodium 130 mEq/L (136-145); Triglycerides 62 mg/dL (< 150); eGFR For African Americans > 60 (> 60); eGFR For Non-African Americans > 60 (> 60)
[2020-03-01 01:41] LABS: Albumin 4.2 g/dL (3.5-5.7); Albumin/Globulin Ratio 1.4 (1.1-2.2); Bilirubin,Indirect 0.4 mg/dL (0.0-1.0); Bilirubin,Total 0.4 mg/dL (0.3-1.0); Total Protein 7.2 g/dL (6.4-8.9)
[2020-03-01 01:42] LABS: % Iron Saturation 25 % (20-55); Iron 112 mcg/dL (65-175); Transferrin 324 mg/dL (203-362)
[2020-03-01 01:59] LABS: Ferritin 57 ng/mL (20-250)
[2020-03-01 02:04] LABS: Folate 22.3 ng/mL (3.0-16.0)
[2020-03-01 02:19] LABS: Estimated Average Glucose 128 mg/dl; Hemoglobin A1C 6.1 %
[2020-03-01] MEDS: Piperacillin/Tazobactam 3.375 GM in 0.9 % Sodium Chloride Mini Bag 100 ML IVPB SCH ×3 (06:17→22:38)
[2020-03-01] MEDS: Nicotine 21 MG PATCH.TD24 TD SCH (06:17)
[2020-03-01] MEDS: Vancomycin 1,250 MG/262.5 ML IV.SOLN IVPB SCH ×2 (11:17→22:39)
[2020-03-01] MEDS: Acetaminophen 325 MG TABLET PO PRN (11:17)
[2020-03-01] MEDS ORDERED: Ipratropium/Albuterol Neb 3 ML IH PRN (18:04)
[2020-03-01 18:10] LABS: Hepatitis B Surface Antigen Nonreactive (Nonreactive)
[2020-03-01 18:39] LABS: Hepatitis B Core IgM Nonreactive (Nonreactive); Hepatitis C Virus Antibody Nonreactive (Nonreactive)
[2020-03-01 18:41] LABS: Hepatitis A Antibody IgM Nonreactive (Nonreactive)
[2020-03-02 02:37] LABS: Hematocrit 32.5 % (37.5-50.1); Hemoglobin 10.3 g/dL (12.9-16.9); Mean Corpuscular HGB Conc 31.7 g/dL (31.6-35.5); Mean Corpuscular Hemoglobin 28.8 pg (28.0-33.3); Mean Corpuscular Volume 90.8 fL (83.0-100.0); Mean Platelet Volume 9.1 fL (9.4-12.4); Platelet Count 192 K/mcL (140-400); Red Blood Count 3.58 M/mcL (4.19-5.50); Red Cell Distribution Width 13.2 % (11.5-14.5); White Blood Count 4.7 K/mcL (4.3-11.1)
[2020-03-02 03:00] LABS: BUN/Creatinine Ratio 18 (6-26); Blood Urea Nitrogen 17 mg/dL (8-23); Calcium 8.8 mg/dL (8.6-10.3); Carbon Dioxide 24 mEq/L (23-29); Chloride 102 mEq/L (98-107); Glucose 86 mg/dL (70-105); Osmolality,Calculated 277 (280-300); Potassium 4.3 mEq/L (3.5-5.1); Sodium 133 mEq/L (136-145); eGFR For African Americans > 60 (> 60); eGFR For Non-African Americans > 60 (> 60)
[2020-03-02] MEDS: Piperacillin/Tazobactam 3.375 GM in 0.9 % Sodium Chloride Mini Bag 100 ML IVPB SCH (05:10)
[2020-03-02] MEDS: Nicotine 21 MG PATCH.TD24 TD SCH (05:11)
[2020-03-02] MEDS: Acetaminophen 325 MG TABLET PO PRN ×2 (07:57→23:17)
[2020-03-02] MEDS ORDERED: Vancomycin 1,500 MG/265 ML IV.SOLN IVPB SCH (11:00)
[2020-03-02] MEDS: Vancomycin 1,250 MG/262.5 ML IV.SOLN IVPB SCH (11:35)
[2020-03-02] MEDS ORDERED: Ibuprofen 600 MG TABLET PO PRN ×2 (15:35→16:22)
[2020-03-02] MEDS ORDERED: NON-FORMULARY MEDICATION 1 EACH EACH (Meloxicam [Mobic] 15 MG) PO PRN (15:35)
[2020-03-02] MEDS: Famotidine 20 MG TABLET PO SCH (21:33)
[2020-03-03] MEDS: Nicotine 21 MG PATCH.TD24 TD SCH (04:54)
[2020-03-03 05:19] LABS: Hematocrit 33.8 % (37.5-50.1); Hemoglobin 10.7 g/dL (12.9-16.9); Mean Corpuscular HGB Conc 31.7 g/dL (31.6-35.5); Mean Corpuscular Hemoglobin 28.6 pg (28.0-33.3); Mean Corpuscular Volume 90.4 fL (83.0-100.0); Mean Platelet Volume 9.1 fL (9.4-12.4); Platelet Count 202 K/mcL (140-400); Red Blood Count 3.74 M/mcL (4.19-5.50); Red Cell Distribution Width 13.2 % (11.5-14.5); White Blood Count 4.7 K/mcL (4.3-11.1)
[2020-03-03 05:28] LABS: BUN/Creatinine Ratio 18 (6-26); Blood Urea Nitrogen 14 mg/dL (8-23); Calcium 9.3 mg/dL (8.6-10.3); Carbon Dioxide 26 mEq/L (23-29); Chloride 101 mEq/L (98-107); Glucose 99 mg/dL (70-105); Osmolality,Calculated 277 (280-300); Potassium 4.4 mEq/L (3.5-5.1); Sodium 133 mEq/L (136-145); eGFR For African Americans > 60 (> 60); eGFR For Non-African Americans > 60 (> 60)
[2020-03-03] MEDS: ARIPiprazole 10 MG TABLET PO SCH (08:09)
[2020-03-03] MEDS: Acetaminophen 325 MG TABLET PO PRN ×2 (08:09→16:15)
[2020-03-03] MEDS: (Valbenazine Tosylate [Ingrezza] 80 MG) PO SCH (08:10)
[2020-03-03] MEDS: Famotidine 20 MG TABLET PO SCH (21:25)
[2020-03-04] MEDS: Acetaminophen 325 MG TABLET PO PRN (00:14)
[2020-03-04] MEDS ORDERED: Melatonin 3 MG TABLET PO PRN (00:19)
[2020-03-04] MEDS: Nicotine 21 MG PATCH.TD24 TD SCH (00:31)
[2020-03-04 06:20] LABS: Hematocrit 32.9 % (37.5-50.1); Hemoglobin 10.6 g/dL (12.9-16.9); Mean Corpuscular HGB Conc 32.2 g/dL (31.6-35.5); Mean Corpuscular Hemoglobin 28.4 pg (28.0-33.3); Mean Corpuscular Volume 88.2 fL (83.0-100.0); Mean Platelet Volume 8.6 fL (9.4-12.4); Platelet Count 181 K/mcL (140-400); Red Blood Count 3.73 M/mcL (4.19-5.50); Red Cell Distribution Width 13.1 % (11.5-14.5); White Blood Count 4.5 K/mcL (4.3-11.1)
[2020-03-04 06:43] LABS: BUN/Creatinine Ratio 18 (6-26); Blood Urea Nitrogen 15 mg/dL (8-23); Calcium 9.6 mg/dL (8.6-10.3); Carbon Dioxide 27 mEq/L (23-29); Chloride 97 mEq/L (98-107); Glucose 103 mg/dL (70-105); Osmolality,Calculated 273 (280-300); Potassium 4.4 mEq/L (3.5-5.1); Sodium 131 mEq/L (136-145); eGFR For African Americans > 60 (> 60); eGFR For Non-African Americans > 60 (> 60)
[2020-03-04] MEDS: ARIPiprazole 10 MG TABLET PO SCH (08:27)
[2020-03-04] MEDS: (Valbenazine Tosylate [Ingrezza] 80 MG) PO SCH (08:27)
[2020-03-04 11:16] VITALS: BP 137/85
[2020-03-04 14:45] LABS: Adenovirus Not Detected (Not Detect); Bordetella Pertussis Not Detected (Not Detect); Chlamydophila pneumoniae Not Detected (Not Detect); Coronavirus 229E Not Detected (Not Detect); Coronavirus HKU1 Not Detected (Not Detect); Coronavirus NL63 Not Detected (Not Detect); Coronavirus OC43 Not Detected (Not Detect); Human Metapneumovirus Not Detected (Not Detect); Human Rhinovirus/Enterovirus Not Detected (Not Detect); Influenza A Subtype 2009 H1 Not Detected (Not Detect); Influenza B Not Detected (Not Detect); Mycoplasma pneumoniae Not Detected (Not Detect); Parainfluenza Virus 1 Not Detected (Not Detect); Parainfluenza Virus 2 Not Detected (Not Detect); Parainfluenza Virus 3 Not Detected (Not Detect); Parainfluenza Virus 4 Not Detected (Not Detect); Respiratory Syncytial Virus Not Detected (Not Detect); SARS-CoV-2 Not Detected (Not Detect)
[2020-03-04] MEDS ORDERED: FLU Vac QV 20-21 (6Month+)/PF 0.5 ML SYRINGE IM ONE (16:20)
[2020-03-04] MEDS ORDERED: Sulfamethoxazole/Trimeth DS 1 EACH TABLET PO SCH (21:00)
== END 2020-03-04 19:10 ==
LOC: EMEROOARM 21:09 → 3ANU 21:09 → SUATTDRO 03-03 18:38
PROVIDERS: ADMIT Internal Medicine; ATTEND Internal Medicine

== ENCOUNTER 2020-03-08 09:18 | Observation (INO) ==
[2020-03-08 09:48] LABS: Basophils % 0.4 %; Eosinophils # 0.2 K/mcL (0.0-0.6); Eosinophils % 3.2 %; Hematocrit 32.9 % (37.5-50.1); Hemoglobin 10.8 g/dL (12.9-16.9); Immature Granulocytes % 0.4 % (0-4); Lymphocytes % 17.5 %; Mean Corpuscular HGB Conc 32.8 g/dL (31.6-35.5); Mean Corpuscular Hemoglobin 29.3 pg (28.0-33.3); Mean Corpuscular Volume 89.2 fL (83.0-100.0); Mean Platelet Volume 8.8 fL (9.4-12.4); Monocytes # 0.6 K/mcL (0.0-1.3); Monocytes % 9.9 %; Neutrophils # 3.9 K/mcL (1.6-8.9); Platelet Count 193 K/mcL (140-400); Red Blood Count 3.69 M/mcL (4.19-5.50); Red Cell Distribution Width 13.9 % (11.5-14.5); Segmented Neutrophils % 68.6 %; White Blood Count 5.7 K/mcL (4.3-11.1)
[2020-03-08 10:07] LABS: BUN/Creatinine Ratio 21 (6-26); Blood Urea Nitrogen 22 mg/dL (8-23); C-Reactive Protein < 5 mg/L (Less than 10); Calcium 9.4 mg/dL (8.6-10.3); Carbon Dioxide 25 mEq/L (23-29); Chloride 102 mEq/L (98-107); Glucose 103 mg/dL (70-105); Osmolality,Calculated 286 (280-300); Potassium 4.5 mEq/L (3.5-5.1); Sodium 136 mEq/L (136-145); eGFR For African Americans > 60 (> 60); eGFR For Non-African Americans > 60 (> 60)
[2020-03-08] MEDS ORDERED: Sulfamethoxazole/Trimeth DS 1 EACH TABLET PO ONE (11:59)
[2020-03-08] MEDS ORDERED: Ondansetron 4 MG/2 ML VIAL IVP PRN (12:30)
[2020-03-08] MEDS ORDERED: Naloxone 0.4 MG/ML INJ IVP PRN (12:30)
[2020-03-08] MEDS ORDERED: Melatonin 3 MG TABLET PO PRN (12:33)
[2020-03-08] MEDS: Acetaminophen 325 MG TABLET PO PRN (19:37)
[2020-03-08] MEDS: Sulfamethoxazole/Trimeth DS 1 EACH TABLET PO SCH (19:38)
[2020-03-08] MEDS: Nicotine 21 MG PATCH.TD24 TD SCH (21:10)
[2020-03-09] MEDS: Acetaminophen 325 MG TABLET PO PRN ×2 (03:25→21:12)
[2020-03-09] MEDS: *HR* Enoxaparin 40 MG/0.4 ML SYRINGE SQ SCH (04:52)
[2020-03-09] MEDS: Sulfamethoxazole/Trimeth DS 1 EACH TABLET PO SCH ×2 (07:55→21:12)
[2020-03-09] MEDS ORDERED: Haloperidol Lactate 5 MG/ML VIAL IM PRN (15:40)
[2020-03-09] MEDS ORDERED: NON-FORMULARY MEDICATION 1 EACH EACH (Doxepin Hcl 10 MG) PO SCH (21:00)
[2020-03-09] MEDS: Nicotine 21 MG PATCH.TD24 TD SCH (21:12)
[2020-03-09] MEDS: Famotidine 20 MG TABLET PO SCH (21:18)
[2020-03-10] MEDS: *HR* Enoxaparin 40 MG/0.4 ML SYRINGE SQ SCH (05:32)
[2020-03-10] MEDS: Acetaminophen 325 MG TABLET PO PRN (05:35)
[2020-03-10] MEDS ORDERED: (Valbenazine Tosylate [Ingrezza] 80 MG) PO SCH (09:00)
[2020-03-10] MEDS: Sulfamethoxazole/Trimeth DS 1 EACH TABLET PO SCH ×2 (09:48→19:42)
[2020-03-10] MEDS: ARIPiprazole 10 MG TABLET PO SCH (09:48)
[2020-03-10] MEDS ORDERED: *HR* LORazepam 2 MG/ML VIAL IM PRN (16:13)
[2020-03-10] MEDS ORDERED: Haloperidol Lactate 5 MG/ML VIAL IM PRN (16:21)
[2020-03-10] MEDS: *HR* LORazepam 1 MG TABLET PO PRN (17:03)
[2020-03-10] MEDS: Famotidine 20 MG TABLET PO SCH (19:42)
[2020-03-10] MEDS: Nicotine 21 MG PATCH.TD24 TD SCH (19:42)
[2020-03-11] MEDS: *HR* LORazepam 1 MG TABLET PO PRN (00:14)
[2020-03-11 05:55] LABS: Hematocrit 34.4 % (37.5-50.1); Hemoglobin 11.3 g/dL (12.9-16.9); Mean Corpuscular HGB Conc 32.8 g/dL (31.6-35.5); Mean Corpuscular Hemoglobin 29.4 pg (28.0-33.3); Mean Corpuscular Volume 89.6 fL (83.0-100.0); Mean Platelet Volume 9.2 fL (9.4-12.4); Platelet Count 166 K/mcL (140-400); Red Blood Count 3.84 M/mcL (4.19-5.50); Red Cell Distribution Width 13.6 % (11.5-14.5); White Blood Count 3.1 K/mcL (4.3-11.1)
[2020-03-11] MEDS: *HR* Enoxaparin 40 MG/0.4 ML SYRINGE SQ SCH (05:58)
[2020-03-11 06:14] LABS: BUN/Creatinine Ratio 15 (6-26); Blood Urea Nitrogen 15 mg/dL (8-23); Carbon Dioxide 21 mEq/L (23-29); Chloride 98 mEq/L (98-107); Glucose 132 mg/dL (70-105); Osmolality,Calculated 269 (280-300); Potassium 4.3 mEq/L (3.5-5.1); Sodium 128 mEq/L (136-145); eGFR For African Americans > 60 (> 60); eGFR For Non-African Americans > 60 (> 60)
[2020-03-11] MEDS: Sulfamethoxazole/Trimeth DS 1 EACH TABLET PO SCH (08:31)
[2020-03-11] MEDS: ARIPiprazole 10 MG TABLET PO SCH (08:32)
[2020-03-11 10:17] LABS: Influenza A PCR Negative (Negative); Influenza B PCR Negative (Negative); Resp. Syncytial Virus PCR Negative (Negative)
[2020-03-11 10:23] LABS: SARS-CoV-2 by PCR (In House) Negative (Negative)
[2020-03-11 10:58] VITALS: BP 129/72
== END 2020-03-11 13:21 ==
LOC: EMEROOARM 09:18 → CDU 09:18 → SUATTDRO 12:05 → CDU 13:08 → 3ANU 03-09 15:56
PROVIDERS: ADMIT Internal Medicine; ATTEND Internal Medicine